=== PATIENT | female | born 1950 | race Caucasian/White ===

== ENCOUNTER 2016-10-18 14:16 | Observation (INO) ==
[2016-10-18] MEDS ORDERED: ALUM/MAG/SIMETH/LIDO VISC 1:1 30 ML BOTTLE PO STA (15:57)
[2016-10-18] MEDS ORDERED: ASPIRIN 325 MG TABLET PO STA (15:57)
--- NOTE | 2016-10-18 16:03 | Emergency Department Note ---
Xochitl Torres Gwan, am scribing for, and in the presence of, Phillip Hazel MD 16:00 . Yasemin Torres James D, MD, personally performed the services described in this documentation, ascribed by Annabel Leung in my presence, and it is both accurate and complete [id number] . Arrival - Arrival Chief Complaint: Chest Pain Stated Complaint: SOB/CP ED Nursing Triage Note: c/o chest heaviness on and off for a week. worse this am. +sob. states cant breath unless arms are above head. +cough. states cough is getting tighter. +headache Mode of Arrival: Ambulatory Limitations: No Limitations Source: Patient, Old Records Reviewed, RN Notes Reviewed Time Seen by Provider: 10/18/16 15:43 - History of Present Illness HPI Narrative: Patient is a 66 y/o white female who presents to the ED with a c/o intermittent chest heaviness and SOB that worsens with exertion with an onset of 1 week. Patient continued to state that her chest discomfort eases when she puts her arm above her head and that she has had a non-productive cough. Her associated sxs have been diaphoresis and hot flashes. She confirmed that her PCP is Dr. Marlon Woodruff, that she last was seen by Dr. medina 1 year ago and that she had a cath performed 2-3 years ago. Patient denies any abd pain or LE edema. While in ED, pt did not appear to be in any distress. Onset (ago): week(s) Consistency: intermittent Severity: moderate Allergies/Adverse Reactions: Allergies Allergy/AdvReac Type Severity Reaction Status Date / Time No Known Allergies Allergy Verified 06/26/15 08:06 Home Medications: Home Medications Medication Instructions Recorded Confirmed Type Aspirin EC Tab 81 mg PO DAILY 10/18/16 10/18/16 History Atorvastatin [Lipitor] 40 mg PO DAILY 10/18/16 10/18/16 History Benzonatate 200 mg PO Q6H PRN 10/18/16 10/18/16 History Cholecalciferol (Vitamin D3) 5,000 unit PO DAILY 10/18/16 10/18/16 History [Vitamin D3] Clorazepate [Tranxene] 3.75 mg PO BID 10/18/16 10/18/16 History Cyanocobalamin (Vitamin B-12) 2,500 mcg PO DAILY 10/18/16 10/18/16 History [Vitamin B12] Ferrous Sulfate Tab [Feosol 325 mg PO DAILY 10/18/16 10/18/16 History Original Tab] Pantoprazole Tab [Protonix Tab] 40 mg PO BID 10/18/16 10/18/16 History Selenium [Selenium Tab] 200 mcg PO BID 10/18/16 10/18/16 History Vortioxetine Hydrobromide 10 mg PO DAILY 10/18/16 10/18/16 History [Trintellix] Review of System - Review of System 12 point system: reviewed and no additional remarkable complaints except as stated - Review of System Constitutional: Present: diaphoresis. Absent: chills, fever Eyes: Absent: discharge, pain Head/Ears/Nose/Throat: Absent: earache Respiratory: Present: as per HPI, cough, other (shortness of breathe ) Cardiovascular: Present: as per HPI, chest pain Gastrointestinal: Absent: abdominal pain, nausea, vomiting Genitourinary female: Absent: dysuria Musculoskeletal: Absent: arm pain, back pain, leg pain, neck pain Skin: Absent: rash, lesions Neurological: Absent: headache, weakness Medical,Surgical,& Family Hx - Medical History Cardio: History of: Cardiac Dysrhythmia (palpitations..heart murmur..), Cardiovascular Problems (aorta has a twist in it) Psychological: History of: Anxiety Disorders Neurology: History of: Migraine No history of: Seizures Genitourinary: History of: Recurring Urinary Tract Infections Gastrointestinal: History of: GERD Musculoskeletal: History of: Back/Neck Problems (neck surgery) No history of: Amputation Reproductive: History of: Endometriosis - Surgical History HEENT Surgeries: Surgical HX of: Tonsilectomy & Adenoidectomy Abdominal Surgeries: Surgical HX of: Colonoscopy Reproductive Surgeries: Surgical HX of;: Hysterectomy Orthopedic Surgeries: Surgical HX of;: Implanted Devices (plate and screws in jaw and back area) - Family History Family History: Reports;: Family Cancer (aunts, uncles), Family Heart Disease ( father) - Social History Smoking Status: Never smoker Frequency of Alcohol Use: None Type of Drug Use: None Exam Physical Examination: GENERAL: This is a white female in no apparent distress. VITAL SIGNS: HEENT: Head is normocephalic and atraumatic. Pupils are equally round and reactive to light. Extraocular movement are intact. Oropharynx is benign with moist mucous membranes. NECK: Neck is soft and supple without tenderness. There are no masses. There is no lymphadenopathy. LUNGS: Lungs are clear to auscultation bilaterally. Chest rises symmetrically. There is no chest wall tenderness. CV: Heart is regular rate and rhythm without murmurs, rubs, or gallops. ABDOMEN: Abdomen is soft, non-tender to palpation. There are no abnormal masses palpated. There is no organomegaly. Bowel sounds are present and active. SKIN: Skin is warm and dry. No rash. EXTREMITIES: Patient has full range of motion without tenderness. There is no pedal edema. NEUROLOGIC: Awake, alert, and oriented x4. Cranial nerves II through XII are grossly intact. There are no motorsensory deficits. PSYCHIATRIC: Normal affect. Normal mood. Vital Signs: Vital Signs Temperature 96.9 F L 10/18/16 15:42 Pulse Rate 81 10/18/16 16:26 Respiratory Rate 16 10/18/16 16:26 Blood Pressure 152/88 10/18/16 16:26 O2 Sat by Pulse Oximetry 97 10/18/16 15:42 Course - Consultations Consultation #1: Discussed with Dr. Vines java application developer for Dr. Woodruff. Patient will be admitted to Dr. Woodruff. Initial orders written for him. Care will be assumed by Dr. Vines upon patient's arrival to the tong. Time: 17:21 Results - Labs CBC & BMP: 10/18/16 16:14 10/18/16 16:14 Lab Results: I have reviewed the patients labs Labs: Laboratory Tests 10/18/16 16:14 WBC 6.3 RBC 5.21 Hgb 14.9 Hct 45.0 MCV 86.4 L Plt Count 259 Baso % (Auto) 1.7 H Laboratory Tests 10/18/16 16:14 Sodium 142 Potassium 3.9 Chloride 104 Carbon Dioxide 30 BUN 11 Creatinine 0.80 Total Bilirubin 1.10 H Alkaline Phosphatase 136 H Globulin 3.8 H Albumin/Globulin Ratio 0.9 L - Diagnostic Findings Procedure: Chest x-ray: report reviewed by me (1. No acute pulmonary process is identified. 2. The patient has known aortic coarctation and there is again dilatation of the escending thoracic aorta. ) Disposition Clinical Impression: Chest pain Case discussed with: patient, patient's family Disposition: Still a Patient Condition: Stable Time of Disposition: 17:21
[2016-10-18] MEDS ORDERED: ASPIRIN 325 MG TABLET ONE (16:19)
[2016-10-18] MEDS ORDERED: ALUM/MAG/SIMETH/LIDO VISC 1:1 30 ML BOTTLE PO ONE (16:19)
--- NOTE | 2016-10-18 16:32 | XRay Report ---
Exam: Chest 2 views Date: October 18, 2016 at 4:14 PM Comparison: Chest one view July 19, 2016, CT chest May 20, 2015 Reason: Chest pain Findings: The cardiomediastinal silhouette appears stable with known aortic coarctation and dilatation of the descending thoracic aorta. No focal consolidation, pneumothorax or pleural effusion is identified. No acute osseous process is seen. Impression: 1. No acute pulmonary process is identified. 2. The patient has known aortic coarctation, and there is again dilatation of the descending thoracic aorta. PROCEDURE INTERPRETED AT [facility] DEPARTMENT OF RADIOLOGY Final Report Signed by: Dr. Ron Spencer
[2016-10-18 16:34] LABS: Basophils # 0.1 10*3/uL (0.0-0.2); Basophils % 1.7 % (0.0-0.8); Eosinophils # 0.3 10*3/uL (0.0-0.87); Eosinophils % 4.9 % (0.00-10.9); Hemoglobin 14.9 GM/DL (12.0-16.0); Immature Granulocytes % 0.5 %; Immature Granulocytes Absolute 0.03 #; Lymphocytes # 1.8 10*3/uL (1.4-4.0); Mean Corpuscular HGB Conc 33.1 GM/DL (32-36); Mean Corpuscular Hemoglobin 29 PG (27-34); Mean Corpuscular Volume 86.4 FL (87-102); Mean Platelet Volume 10.6 FL (9.6-12.0); Monocytes # 0.7 10*3/uL (0.11-0.8); Monocytes % 11.5 % (1.7-12.7); Neutrophils # 3.3 10*3/uL (1.4-7.4); Neutrophils % 52.4 % (38.7-73.9); Platelet Count 259 T/CUMM (130-400); Red Blood Count 5.21 MC/CUMM (3.8-5.5); Red Cell Distribution Width 13.9 % (9.3-17.3); White Blood Count 6.3 T/CUMM (4-12)
[2016-10-18 16:45] LABS: PT Patient Result 10.5 SECS; Partial Thromboplastin Time 26.7 SECS (0-40)
[2016-10-18 16:57] LABS: Albumin 3.7 G/DL (3.4-5.0); Bilirubin,Total 1.1 MG/DL (0.2-1.0); Calcium 9.4 MG/DL (8.5-10.1); Osmolality,Calculated 281.1 MOS/KG (273-304); Potassium 3.9 MMOL/L (3.5-5.1); Total Protein 7.5 G/DL (6.4-8.3)
[2016-10-18] MEDS ORDERED: ACETAMINOPHEN 325 MG TABLET PO PRN (18:03)
[2016-10-18] MEDS ORDERED: ONDANSETRON 4 MG/2 ML VIAL IV PRN (18:03)
[2016-10-18] MEDS ORDERED: MORPHINE 2 MG/1 ML SYRINGE IV PRN (18:03)
[2016-10-18] MEDS: SODIUM CHLORIDE 0.9% 1,000 ML IV SCH (18:47)
[2016-10-18] MEDS: ENOXAPARIN 40 MG/0.4 ML SYRINGE SUBCUT SCH (20:46)
[2016-10-18] MEDS: DOCUSATE SODIUM 100 MG CAPSULE PO SCH (20:46)
[2016-10-19] MEDS: SODIUM CHLORIDE 0.9% 1,000 ML IV SCH ×3 (02:11→18:21)
--- NOTE | 2016-10-19 05:54 | EKG Report ---
Stationary ECG Study [facility] ER Test Date: 10/18/2016 2:35:33 PM Pat Name: CED JUAREZ Department: Room: 237 Gender: F [employer]: : [id number] Requested by: Phillip Putnam Order Number: [id number] Reading MD: HI MCCRAY Intervals Meno Rate: 93 P: 81 ID: [id number] QRS: 66 QRSD: 81 T: 59 QT: 376 QTc: 427 Interpretive Statements SINUS RHYTHM POSSIBLE LEFT ATRIAL ENLARGEMENT MODERATE ST DEPRESSION Electronically Signed On 10-19-16 17:06:19 CDT by HI MCCRAY [email or web address]
[2016-10-19] MEDS ORDERED: ALBUTEROL/IPRATROPIUM 3 ML NEB RESP TX PRN (08:19)
[2016-10-19] MEDS ORDERED: PANTOPRAZOLE 40 MG TABLET PO SCH (09:00)
--- NOTE | 2016-10-19 09:13 | Family Practice History&Phys ---
Assessment and Plan (1) Chest pain Status: Acute Assessment and plan: 10/19/2016: Get cardiology consult. Initial axes are negative she is on a monitor at present Current Visit: Yes (2) Acute bronchitis with bronchospasm Status: Acute Assessment and plan: 10/19/2016: We will give Sami Herman. We will start her back on her Protonix as this does seem to initiate some of these bronchospasms. Medication for antitussives Current Visit: Yes (3) Gastroesophageal reflux disease Status: Acute Assessment and plan: 10/19/2016: We will initiate proton Current Visit: Yes (4) Depression Status: Acute Assessment and plan: 10/19/2016: She is on current trinTelex and will maintain Current Visit: Yes History of Present Illness Chief complaint: Chest fullness/discomfort, shortness of breath History of present illness: Ms. Gaona is a 66 year old female Well-known to me, came to the emergency room yesterday with intermittent chest pain which she states is been going off and on for approximately 1 week. Is a little vague on symptoms but she has had some associated diaphoresis. Admits that she went to a family reunion this weekend and "did well" during that time. Her initial set of cardiac isoenzymes were negative. The remaining lab was also normal. She had a chest x-ray which revealed no cardiopulmonary process going on except for dilatation of the descending aorta. (Known coarctation of the aorta). At this time she is coughing significantly. She does have a history of reflux which was felt to have caused her coughing in the past and I believe she is having similar symptoms at this time. We are going to restart her Protonix to see if we can quell this a little bit. Her chest pain is equivocally reproducible and it seems like it may be pleuritic. I do not appreciate any significant wheezing but she does state that it hurts when she coughs. Denies any fever chills nausea vomiting or diarrhea. She is not having any difficulty with eating. No abdominal discomfort any difficulty with bowel or bladder no leg swelling and she has no flank pain. She denies any hemoptysis. Home Medications Medication Instructions Recorded Confirmed Type Aspirin EC Tab 81 mg PO DAILY 10/18/16 10/18/16 History Atorvastatin [Lipitor] 40 mg PO DAILY 10/18/16 10/18/16 History Benzonatate 200 mg PO Q6H PRN 10/18/16 10/18/16 History Cholecalciferol (Vitamin D3) 5,000 unit PO DAILY 10/18/16 10/18/16 History [Vitamin D3] Clorazepate [Tranxene] 3.75 mg PO BID 10/18/16 10/18/16 History Cyanocobalamin (Vitamin B-12) 2,500 mcg PO DAILY 10/18/16 10/18/16 History [Vitamin B12] Ferrous Sulfate Tab [Feosol 325 mg PO DAILY 10/18/16 10/18/16 History Original Tab] Pantoprazole Tab [Protonix Tab] 40 mg PO BID 10/18/16 10/18/16 History Selenium [Selenium Tab] 200 mcg PO BID 10/18/16 10/18/16 History Vortioxetine Hydrobromide 10 mg PO DAILY 10/18/16 10/18/16 History [Trintellix] Allergies Allergy/AdvReac Type Severity Reaction Status Date / Time No Known Allergies Allergy Verified 06/26/15 08:06 12 point system: reviewed and no additional remarkable complaints except as stated (Those mentioned in the history and physical.) - Constitutional Constitutional: Present: fatigue - EENT Nose, mouth and throat: Absent: dysphagia, neck mass - Cardiovascular Cardiovascular: Present: chest pain at rest (And with coughing). Absent: claudication, orthopnea - Respiratory Respiratory: Present: cough, dyspnea. Absent: wheezing - Gastrointestinal Gastrointestinal: Absent: constipation - Genitourinary Genitourinary: Absent: difficulty urinating - Musculoskeletal Musculoskeletal: Absent: arthralgias - Neurological Neurological: Absent: behavioral changes Medical,Surgical,& Family Hx - Medical History Cardio: History of: Cardiac Dysrhythmia (palpitations..heart murmur..), Cardiovascular Problems (aorta has a twist in it) Psychological: History of: Anxiety Disorders Neurology: History of: Migraine No history of: Seizures Genitourinary: History of: Recurring Urinary Tract Infections Gastrointestinal: History of: GERD Musculoskeletal: History of: Back/Neck Problems (neck surgery) No history of: Amputation Reproductive: History of: Endometriosis - Surgical History HEENT Surgeries: Surgical HX of: Tonsilectomy & Adenoidectomy Abdominal Surgeries: Surgical HX of: Colonoscopy Reproductive Surgeries: Surgical HX of;: Hysterectomy Orthopedic Surgeries: Surgical HX of;: Implanted Devices (plate and screws in jaw and back area) - Family History Family History: Reports;: Family Cancer (aunts, uncles), Family Heart Disease ( father) - Social History Smoking Status: Never smoker Frequency of Alcohol Use: None Type of Drug Use: None Exam - Constitutional Vitals: Period Temp Pulse Resp BP Sys/Bajwa Pulse Ox Last 24 Hr 96.9 F-97.9 F 77-91 14-20 128-176/63-104 96-98 Exam: Generally well-developed female is very alert and oriented she is and is very cognitive. HEENT: There is no temporal arteritis tenderness. Patient does have a mild generalized headache. Pupils are equally reactive to light and accommodation and she has no visual cuts. Extraocular movements are intact. Neck is supple trachea is midline and she has no pharyngeal edema Cardiovascular rate is regular no gallop or rub there is 1/6 systolic ejection murmur Lungs clear bilaterally upper and lower feels. I do not appreciate any wheezing at this time but she does have a paroxysmal bronchospasms Abdomen soft nondistended nontender positive bowel sounds Extremities no clubbing cyanosis or edema Neurologically she is without any cranial nerve deficits visual cuts or any peripheral motor or sensory lateralizing signs. Results - Labs CBC & BMP: 10/18/16 16:14 10/18/16 16:14
[2016-10-19] MEDS: methylPREDNISolone SOD SUC 125 MG/2 ML VIAL IV SCH ×2 (10:11→17:10)
[2016-10-19] MEDS: CYANOCOBALAMIN 500 MCG TABLET PO SCH (10:12)
[2016-10-19] MEDS: CHOLECALCIFEROL 1,000 UNIT TABLET PO SCH (10:12)
[2016-10-19] MEDS: SELENIUM 200 MCG TABLET PO SCH ×2 (10:13→20:46)
[2016-10-19] MEDS: BUTALBITAL/ACETAMIN/CAFFEINE 50-325-40 MG TABLET PO PRN ×2 (10:13→17:10)
[2016-10-19] MEDS: DOCUSATE SODIUM 100 MG CAPSULE PO SCH ×2 (10:13→20:46)
[2016-10-19] MEDS: ATORVASTATIN 40 MG TABLET PO SCH (10:13)
[2016-10-19] MEDS: ASPIRIN EC 81 MG TABLET PO SCH (10:13)
[2016-10-19] MEDS: FERROUS SULFATE 325 MG TABLET PO SCH (10:13)
[2016-10-19] MEDS: CLORAZEPATE 3.75 MG TABLET PO SCH ×2 (10:13→20:46)
[2016-10-19] MEDS: HYDROcodone/CHLORPHENIRAMINE ER 5 ML UDCUP PO PRN (10:14)
--- NOTE | 2016-10-19 10:35 | CT Report ---
CT chest wo/w con Indication: History coarctation of aorta Comparison: CT chest dated May 20, 2015 Technique: Multiple axial tomographic images of the chest were obtained before and after the administration of 80 cc Omnipaque 350 intravenous contrast. Findings: Redemonstration of configuration of aorta consistent with coarctation with significant narrowing at the junction of the distal arch and proximal descending aorta distal to takeoff of the left subclavian artery. Narrowing appears similar to prior exam and measures approximately 1 cm. Pre and poststenotic dilatation again demonstrated. Prestenotic dilatation appears increased measuring up to 3.2 cm compared to 2.2 cm on prior examination at the level of the mid aortic arch. Poststenotic dilatation appears similar to prior examination measuring proximally 4.1 x 4.7 in largest axial dimensions at the proximal descending thoracic aorta at the level of the pulmonary artery bifurcation. No significant intrathoracic lymphadenopathy by CT size criteria. Heart size upper limits of normal. Mild dependent change of the lungs present. Senescent change and scattered small pulmonary scarring noted. No focal consolidation, pleural effusion, or pneumothorax. Visualized upper abdomen demonstrates no acute abnormality. Occasional small hypodensities are again noted within the liver which likely reflects cysts. Visualized osseous and surrounding soft tissue structures appear grossly unchanged. IMPRESSION: Redemonstration of configuration of aorta consistent with coarctation with significant narrowing at the junction of the distal arch and proximal descending aorta distal to takeoff of the left subclavian artery. Narrowing appears similar to prior exam and measures approximately 1 cm. Pre and poststenotic dilatation again demonstrated which appears similar to comparison study. The CT exam was performed using one or more of the following dose reduction techniques: Automated exposure control, adjustment of the mA and/or kV according to patient size, or use of iterative reconstruction technique. PROCEDURE INTERPRETED AT [facility] DEPARTMENT OF RADIOLOGY Final Report Signed by: Dr Ovi Mackey
--- NOTE | 2016-10-19 11:04 | Cardiology Consult Note ---
Assessment and Plan - Time spent with patient Time spent with patient: Greater than 30 minutes (1) Coughing Status: Acute Assessment and plan: See plan of care listed below Current Visit: Yes (2) Hypertension Status: Chronic Assessment and plan: See plan of care listed below Current Visit: Yes (3) Dyslipidemia Status: Chronic Assessment and plan: See plan of care listed below Current Visit: Yes (4) Coarctation of aorta Status: Chronic Assessment and plan: See plan of care listed below Current Visit: Yes (5) Chest pain Status: Acute Assessment and plan: See plan of care listed below Current Visit: Yes (6) Gastroesophageal reflux disease Status: Chronic Assessment and plan: See plan of care listed below Current Visit: Yes History of Present Illness - Data of Consult Patient: known to practice within the last 3 years Consult date: 10/19/16 Requesting Physician: Marlon Woodrfuf Primary care physician: Marlon Woodruff - Consult Narrative Reason for consult: chest pain, SOB History of present illness: 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 LAMAS Mrs. Gaona, 66WF, previously followed by Dr. Lamas for coarctation of aorta. She was last seen in cardiology clinic February 03, 2016. Risk factors include: hypertension, dyslipidemia. She has had heart catheterization several years ago revealing only mild CAD. Patient presented to the emergency department yesterday with intermittent chest pain, shortness of breath. Chest pain is described as sharp and stabbing across her chest, occurring for approximately 1 week. Chest pain is worse with coughing, and certain movements. Improves when she puts her arms above her head. She rates the discomfort as a 7 on a scale of 1-10, she is currently chest pain-free. She has been more short of breath for approximately 1 week. This is a dry and hacking cough. Walking, bending over and eating exacerbates her coughing. Cardiac biomarkers are negative, EKG is unremarkable. Patient is more concerned with her significant "fits of coughing". She had a "fit" this morning. She did not receive her PPI last evening. She remarks that her PPI, routinely taken twice daily, has previously dramatically improved her coughing. She had an EGD a few years ago performed by Dr. Ashford. She was told she has reflux and was started on a PPI twice daily. She was also told she has a small hiatal hernia. She identifies that bending forward also makes her cough is significant amount. Her father had a "massive" hiatal hernia and exhibited symptoms similar to what she is experiencing and she is gravely concerned that she may have any enlargement of her hiatal hernia. She would like to see Dr. Ashford during this admission as well. There is concerned she could be aspirating and will ask for swallow evaluation. She believes she needs a pulmonary consultation has previously seen Dr. Obando as well. She denies a history of allergies. I discussed this patient with Dr. Lamas, CT chest with and without without contrast to evaluate coarctation of aorta will be ordered this morning. Will schedule swallow evaluation, ask gastroenterology and pulmonology to see patient as well. From a cardiac standpoint, it seems that she is doing well in her chest pain is noncardiac in nature. I will further discuss with Dr. Lamas and await additional recommendations. ASSESSMENT/PLAN: 1. CHEST PAIN - improved with hands above her head. Will add Tylenol, Neurontin and Ultram to treat her musculoskeletal discomfort related to cough 2. SOB - may be an aspiration component, allergic reaction or asthma, bronchitis. 3. COUGH - chronic cough for over 1 year. She is not on an TAE inhibitor. Possible aspiration. 4. HYPERTENSION - adequately controlled 5. DYSLIPIDEMIA - fasting lipid profile 6. COARTATION OF AORTA - CT Chest to evaluate. Suspect this has nothing to do with her chest pain, SOB or cough. CC: Marlon Woodruff, DO - Home Medications and Allergies Home Medications: Home Medications Medication Instructions Recorded Confirmed Type Aspirin EC Tab 81 mg PO DAILY 10/18/16 10/18/16 History Atorvastatin [Lipitor] 40 mg PO DAILY 10/18/16 10/18/16 History Benzonatate 200 mg PO Q6H PRN 10/18/16 10/18/16 History Cholecalciferol (Vitamin D3) 5,000 unit PO DAILY 10/18/16 10/18/16 History [Vitamin D3] Clorazepate [Tranxene] 3.75 mg PO BID 10/18/16 10/18/16 History Cyanocobalamin (Vitamin B-12) 2,500 mcg PO DAILY 10/18/16 10/18/16 History [Vitamin B12] Ferrous Sulfate Tab [Feosol 325 mg PO DAILY 10/18/16 10/18/16 History Original Tab] Pantoprazole Tab [Protonix Tab] 40 mg PO BID 10/18/16 10/18/16 History Selenium [Selenium Tab] 200 mcg PO BID 10/18/16 10/18/16 History Vortioxetine Hydrobromide 10 mg PO DAILY 10/18/16 10/18/16 History [Trintellix] Allergies/Adverse Reactions: Allergies Allergy/AdvReac Type Severity Reaction Status Date / Time No Known Allergies Allergy Verified 06/26/15 08:06 Review of systems: REVIEW OF SYSTEMS: See HPI - Constitutional Constitutional: Present: Fatigue from being unable to sleep from coughing. Absent: syncope, anorexia, night sweats - EENT Eyes: Absent: blurry vision, loss of vision, diplopia Ears: Absent: decreased hearing, ear pain, ear discharge - Cardiovascular Cardiovascular: Present: chest pain with coughing and certain positions. Dyspnea at rest. Denies edema, palpitations. Absent: chest pain with deep breath, claudication - Respiratory Respiratory: Present: PENA and at rest, dry, cough. Absent: wheezing, hemoptysis , change in phlegm color - Gastrointestinal Gastrointestinal: Denies: constipation. Absent: abdominal pain, hematemesis, hematochezia, melena, change in bowel habits, nausea - Genitourinary Genitourinary: Absent: difficulty urinating, dysuria, urinary hesitancy, flank pain - Musculoskeletal Musculoskeletal: Present: back pain Absent: joint swelling, muscle cramps, muscle weakness - Neurological Neurological: Present: normal gait without frequent falls. Absent: dizziness, hemiparesis - Psychiatric Psychiatric: Absent: anxiety, depression, difficulty concentrating - Endocrine Endocrine: Absent: cold intolerance, heat intolerance, polyuria, polyphagia, polydipsia - Hematologic/Lymphatic Hematologic/Lymphatic: Present: easy bruising. Absent: easy bleeding -Integumentary Integumentary: Absent: lesions, rashes, skin breakdown Medical,Surgical,& Family Hx - Medical History Cardio: History of: Cardiac Dysrhythmia (palpitations..heart murmur..), Hypertension, Cardiovascular Problems (aorta has a twist in it) No history of: CAD Psychological: History of: Anxiety Disorders Neurology: History of: Migraine No history of: Seizures Genitourinary: History of: Recurring Urinary Tract Infections Gastrointestinal: History of: GERD Musculoskeletal: History of: Back/Neck Problems (neck surgery) No history of: Amputation Reproductive: History of: Endometriosis - Surgical History HEENT Surgeries: Surgical HX of: Tonsilectomy & Adenoidectomy Abdominal Surgeries: Surgical HX of: Colonoscopy Reproductive Surgeries: Surgical HX of;: Hysterectomy Orthopedic Surgeries: Surgical HX of;: Implanted Devices (plate and screws in jaw and back area) - Family History Family History: Reports;: Family Cancer (aunts, uncles), Family Heart Disease ( father) - Social History Smoking Status: Never smoker Frequency of Alcohol Use: None Type of Drug Use: None Marital Status: Lives With:: Spouse Functional capacity: independent ambulation Physical Examination Vital Signs Temp Pulse Resp BP Pulse Ox 96.9 F L 91 H 18 160/69 97 10/18/16 14:33 10/18/16 14:33 10/18/16 14:33 10/18/16 14:33 10/18/16 14:33 General: [Appears well with no apparent distress.] [Pleasant and cooperative. ] [Appears comfortable.] HEENT: [PERRL, normocephalic, atraumatic. Mucous membranes moist. No jaundice noted. Conjunctiva moist and clear, sclerae anicteric] Neck: No JVD/HJR, no thyromegaly or lymphadenopathy noted. No carotid bruit appreciated Cardiac: [Regular rate and rhythm.] [No obvious murmur rub or gallop.] Lungs: [Clear to auscultation without accessory muscle use to assist the respiratory pattern.] Oxygen in use via nasal cannula Abdomen: Soft, bowel sounds normoactive. Nontender and nondistended. No abdominal bruit or thrill noted. No masses noted. Musculoskeletal: No fluid collection. Decreased range of motion is noted. Extremities: No clubbing, cyanosis noted. [ No edema noted.] Upper extremity pulses 2+. Lower extremity pulses 2+. Capillary refill less than 3 seconds. Skin: No unusual lesions or rashes. No skin breakdown appreciated. Neuro: Awake, alert and oriented 3. Moves all extremities well without hemiparesis or paralysis. No essential tremor is appreciated. Result/EKG - Labs CBC & BMP: 10/18/16 16:14 10/18/16 16:14 Lab Results: I have reviewed the past 24 hour labs Labs: Laboratory Results - last 24 hr 10/18/16 10/18/16 10/18/16 16:14 16:14 16:14 WBC 6.3 RBC 5.21 Hgb 14.9 Hct 45.0 MCV 86.4 L MCH 29 MCHC 33.1 RDW 13.9 Plt Count 259 MPV 10.6 Neut % (Auto) 52.4 Lymph % (Auto) 29.0 [place] % (Auto) 11.5 Eos % (Auto) 4.9 Baso % (Auto) 1.7 H Neut # (Auto) 3.3 Lymph # (Auto) 1.8 [place] # (Auto) 0.7 Eos # (Auto) 0.3 Baso # (Auto) 0.1 Immature Gran % 0.5 Nucleated RBC % 0.0 Immature Gran # 0.03 Nucleated RBCs # 0.00 INR 1.0 PT Patient/Control Mix 10.5 Circ Anticoag PTT 26.7 Sodium 142 Potassium 3.9 Chloride 104 Carbon Dioxide 30 Anion Gap 11.9 BUN 11 Creatinine 0.80 GFR Calculation 74 BUN/Creatinine Ratio 13.00 Glucose 96 Calculated Osmolality 281.1 Calcium 9.4 Total Bilirubin 1.10 H AST 14 ALT 18 Alkaline Phosphatase 136 H Troponin I Total Protein 7.5 Albumin 3.7 Globulin 3.8 H Albumin/Globulin Ratio 0.9 L 10/18/16 10/18/16 10/18/16 16:14 19:33 21:34 WBC RBC Hgb Hct MCV MCH MCHC RDW Plt Count MPV Neut % (Auto) Lymph % (Auto) [place] % (Auto) Eos % (Auto) Baso % (Auto) Neut # (Auto) Lymph # (Auto) [place] # (Auto) Eos # (Auto) Baso # (Auto) Immature Gran % Nucleated RBC % Immature Gran # Nucleated RBCs # INR PT Patient/Control Mix Circ Anticoag PTT Sodium Potassium Chloride Carbon Dioxide Anion Gap BUN Creatinine GFR Calculation BUN/Creatinine Ratio Glucose Calculated Osmolality Calcium Total Bilirubin AST ALT Alkaline Phosphatase Troponin I 0.017 0.017 0.017 Total Protein Albumin Globulin Albumin/Globulin Ratio - Diagnostic Findings Procedure: Chest x-ray: report reviewed by me - EKG EKG results: interpreted by me EKG shows: sinus rhythm
--- NOTE | 2016-10-19 13:19 | Gastrointestinal Consult Note ---
<Yodit Fraire - Last Filed: 10/19/16 13:17> Assessment and Plan (1) Chest pain Status: Acute Assessment and plan: 10/19-recent onset of chest heaviness with new onset cough overnight with eating. Last EGD in 2016 with findings of hiatal hernia. No history of gallbladder disease in the past. Obtain gallbladder ultrasound tomorrow morning to further evaluate. Continue PPI. Plan an addendum to followed by Dr. Horta. Current Visit: Yes History of Present Illness Chief complaint: Atypical chest pain, cough with eating History of present illness: Ms. Gaona is a 66 year old female who was admitted to the hospital with complaints of atypical chest pain over the last several days as well as increasing shortness of breath. Patient states that over the last several days she has noticed that she has had increasing shortness of breath but it worsens with exertion. This is an increase from her baseline shortness of breath. She also states that she has had some chest discomfort as well that she reports is improved by raising her arms over her head. She states that the heaviness in her chest continued and she presented to the emergency room on yesterday for further evaluation. Patient states that last night after admission she did not receive her nighttime dose of Protonix. She states shortly after going to bed she began having a continuous dry cough they could not be relieved. She has a history of this cough in the past that she states was related to her reflux. Her last EGD was done in 2016 due to this cough with only findings of hiatal hernia. She also has a history of reporting that she does cough at times after she eats. She denies any abdominal pain, nausea or vomiting. Denies a history of gallbladder disease but does report a family history in her father. She denies any recent weight loss. Denies any melena or hematochezia. Denies any dysphagia. At this time she is being treated for acute bronchitis. She denies any respiratory distress since admission. Home Medications Medication Instructions Recorded Confirmed Type Aspirin EC Tab 81 mg PO DAILY 10/18/16 10/18/16 History Atorvastatin [Lipitor] 40 mg PO DAILY 10/18/16 10/18/16 History Benzonatate 200 mg PO Q6H PRN 10/18/16 10/18/16 History Cholecalciferol (Vitamin D3) 5,000 unit PO DAILY 10/18/16 10/18/16 History [Vitamin D3] Clorazepate [Tranxene] 3.75 mg PO BID 10/18/16 10/18/16 History Cyanocobalamin (Vitamin B-12) 2,500 mcg PO DAILY 10/18/16 10/18/16 History [Vitamin B12] Ferrous Sulfate Tab [Feosol 325 mg PO DAILY 10/18/16 10/18/16 History Original Tab] Pantoprazole Tab [Protonix Tab] 40 mg PO BID 10/18/16 10/18/16 History Selenium [Selenium Tab] 200 mcg PO BID 10/18/16 10/18/16 History Vortioxetine Hydrobromide 10 mg PO DAILY 10/18/16 10/18/16 History [Trintellix] Allergies Allergy/AdvReac Type Severity Reaction Status Date / Time No Known Allergies Allergy Verified 06/26/15 08:06 Medical,Surgical,& Family Hx - Medical History Cardio: History of: Cardiac Dysrhythmia (palpitations..heart murmur..), Cardiovascular Problems (aorta has a twist in it) Psychological: History of: Anxiety Disorders Neurology: History of: Migraine No history of: Seizures Genitourinary: History of: Recurring Urinary Tract Infections Gastrointestinal: History of: GERD Musculoskeletal: History of: Back/Neck Problems (neck surgery) No history of: Amputation Reproductive: History of: Endometriosis - Surgical History HEENT Surgeries: Surgical HX of: Tonsilectomy & Adenoidectomy Abdominal Surgeries: Surgical HX of: Colonoscopy Reproductive Surgeries: Surgical HX of;: Hysterectomy Orthopedic Surgeries: Surgical HX of;: Implanted Devices (plate and screws in jaw and back area) - Family History Family History: Reports;: Family Cancer (aunts, uncles), Family Heart Disease ( father) - Social History Smoking Status: Never smoker Frequency of Alcohol Use: None Type of Drug Use: None 12 point system: reviewed and no additional remarkable complaints except as stated - Constitutional Constitutional: Present: as per HPI - EENT Eyes: Present: as per HPI Ears: Present: as per HPI Nose, mouth and throat: Present: as per HPI - Cardiovascular Cardiovascular: Present: as per HPI - Respiratory Respiratory: Present: as per HPI, cough, dyspnea - Gastrointestinal Gastrointestinal: Present: as per HPI, heartburn - Genitourinary Genitourinary: Present: as per HPI - Musculoskeletal Musculoskeletal: Present: as per HPI - Neurological Neurological: Present: as per HPI - Psychiatric Psychiatric: Present: as per HPI - Endocrine Endocrine: Present: as per HPI - Hematologic/Lymphatic Hematologic/Lymphatic: Present: as per HPI Exam - Constitutional Vitals: Period Temp Pulse Resp BP Sys/Bajwa Pulse Ox Last 24 Hr 96.9 F-97.9 F 70-91 14-20 128-176/63-104 96-98 General appearance: normal weight, no acute distress - Head Head exam: Present: normal inspection, normocephalic - Eye Eye exam: Present: other (Lids and conjunctive are unremarkable). Absent: scleral icterus - ENT ENT exam: Present: normal exam, normal oropharynx - Neck Neck exam: Present: normal inspection - Respiratory Respiratory exam: Present: clear to auscultation bilaterally. Absent: rales, rhonchi, wheezes - Cardiovascular Cardiovascular exam: Present: regular rate and rhythm. Absent: diastolic murmur , JVD, systolic murmur - GI/Abdominal GI/Abdominal exam: Present: normal bowel sounds, soft. Absent: ascites, distended, mass, organomegaly, tenderness - Extremities Exam Extremities exam: Present: normal inspection, full ROM - Back Exam Back exam: Present: normal inspection - Neurological Exam Neurological exam: Present: alert, oriented X3 - Psychiatric Psychiatric exam: Present: normal affect, normal mood - Skin Skin exam: Present: normal color, warm, dry Results - Labs CBC & BMP: 10/18/16 16:14 10/18/16 16:14 Lab Results: I have reviewed the past 24 hour labs <Benito Horta - Last Filed: 10/20/16 19:40> History of Present Illness History of present illness: Ms. Gaona is a 66 year old female Exam - Constitutional Vitals: Period Temp Pulse Resp BP Sys/Bajwa Pulse Ox Last 24 Hr 97.4 F-98.4 F 73-98 16-20 138-160/73-97 94-97 Results - Labs CBC & BMP: 10/18/16 16:14 10/18/16 16:14
[2016-10-19] MEDS: ENOXAPARIN 40 MG/0.4 ML SYRINGE SUBCUT SCH (20:46)
[2016-10-19] MEDS: BENZONATATE 100 MG CAPSULE PO PRN (20:51)
[2016-10-19] MEDS: PANTOPRAZOLE 40 MG TABLET PO SCH (21:57)
[2016-10-20] MEDS: methylPREDNISolone SOD SUC 125 MG/2 ML VIAL IV SCH ×3 (00:57→16:56)
[2016-10-20] MEDS: SODIUM CHLORIDE 0.9% 1,000 ML IV SCH ×3 (02:25→18:20)
[2016-10-20] MEDS ORDERED: KETOROLAC 15 MG/1 ML VIAL IV ONE (08:09)
--- NOTE | 2016-10-20 08:18 | EKG Report ---
Stationary ECG Study [facility] Test Date: 10/20/2016 7:29:02 AM Pat Name: CED JUAREZ Department: Room: 237 Gender: F Business Information Analyst: GUNNAR : 1950 Requested by: Sylvia Lamas Order Number: [id number] Reading MD: SYLVIA LAMAS Intervals [place] Rate: 75 P: 77 MT: 167 QRS: 7 QRSD: 88 T: -5 QT: 400 QTc: 428 Interpretive Statements SINUS RHYTHM NONSPECIFIC T-WAVE ABNORMALITY INTERPRETATION BASED ON A DEFAULT AGE OF 40 YEARS Electronically Signed On 10-20-16 13:49:06 CDT by SYLVIA LAMAS [email or web address]
--- NOTE | 2016-10-20 08:53 | Family Practice Progress Note ---
Family Practice - PN: Subj Interval history: Patient seen this morning. She continues to hav intermittent coughing. She continues to complain of chest pain with movement of her arms and with deep breathing. It is felt this is noncardiac. She does have reproducible pain is noted with inhalations. I do not appreciate any wheezing or rales at this time. I am going to give her injection IV of Toradol to see if this will help in addition to her steroids that were given. Her beta natriuretic peptide was slightly high at 257. We did get a gallbladder ultrasound which is pending and she is scheduled for a swallowing study today per GI services. Hopefully we can get her home if everything is reasonably normal Exam (Progress Note) - Constitutional Vitals: Period Temp Pulse Resp BP Sys/Bajwa Pulse Ox Last 24 Hr 97.4 F-98.0 F 70-89 18-20 138-160/75-88 94-98 Exam: Generally stable no significant distress except the pain in her chest associated with deep breathing. HEENT pupils are equal reactive light neck is supple and trachea midline Lungs no rales. Do not appreciate any significant wheezing at present. She does have paroxysmal bronchospasms Abdomen soft nondistended nontender Extremities no clubbing cyanosis or edema Neurologically fully intact both and cranial nerves and peripheral nerves. Results - Labs CBC & BMP: 10/18/16 16:14 10/18/16 16:14 Assessment and Plan (1) Chest pain Status: Acute Assessment and plan: 10/19/2016: Get cardiology consult. Initial axes are negative she is on a monitor at present 10/20/2016. This is noncardiac it is felt and we are going to treat her palliatively for pleuritic chest pain Current Visit: Yes (2) Acute bronchitis with bronchospasm Status: Acute Assessment and plan: 10/19/2016: We will give Tessalon Perles. We will start her back on her Protonix as this does seem to initiate some of these bronchospasms. Medication for antitussives 10/20/2016 we will continue the antitussives that we are currently giving her. And she will continue getting her steroids and also get some ketorolac Current Visit: Yes (3) Gastroesophageal reflux disease Status: Chronic Assessment and plan: 10/19/2016: We will initiate proton Current Visit: Yes (4) Depression Status: Acute Assessment and plan: 10/19/2016: She is on current trinTelex and will maintain Current Visit: Yes
--- NOTE | 2016-10-20 09:13 | Event Note ---
Stopped by to see patient for consult. She was gone to x-ray for barium swallow. Reviewed old records on her. We worked her up in the office about a year and a half ago for chronic cough. She had a negative CT. She had normal PFTs. Normal sinus x-rays. She had a fiberoptic bronchoscopy that indicated inflammation of the larynx felt to be due to reflux. I have reviewed her CT here and it does not show anything in the lungs. My understanding is that she is getting a barium swallow this morning with plans to be discharged later. I would be happy to see her outpatient. I can come back to see her tomorrow for consult here if needed.
--- NOTE | 2016-10-20 09:55 | Ultrasound Report ---
History: Atypical chest pain with eating Date: 10/20/2016 Study: Gallbladder ultrasound Comparison exam: February 28, 2008 The gallbladder is normal in appearance without gallstones or wall thickening. There is no abnormal pericholecystic fluid. There is no abnormal biliary dilatation. The common bile duct measures 3.3 mm diameter. The liver measures 17 cm length and contains a septated cyst in the right lobe at 15 mm diameter, unchanged from the previous study. There is also small simple cyst 6 mm which is unchanged. The pancreas is normal. The right kidney measures 9.8 cm length and appears normal. Impression: Normal appearance of the gallbladder. Hepatic cysts as before PROCEDURE INTERPRETED AT [facility] DEPARTMENT OF RADIOLOGY Final Report Signed by: Dr. Whitney Ashford
--- NOTE | 2016-10-20 09:59 | Gastrointestinal Progress Note ---
<Yodit Fraire - Last Filed: 10/20/16 09:56> Assessment and Plan (1) Chest pain Status: Acute Assessment and plan: 10/20-continued coughing episodes. Barium swallow pending. Gallbladder ultrasound unremarkable. Plan an addendum to followed by Dr. Horta. 10/19-recent onset of chest heaviness with new onset cough overnight with eating. Last EGD in 2016 with findings of hiatal hernia. No history of gallbladder disease in the past. Obtain gallbladder ultrasound tomorrow morning to further evaluate. Continue PPI. Plan an addendum to followed by Dr. Horta. Current Visit: Yes Gastroenterology - PN: Subj Interval history: CC: Chest pain, cough Patient is seen awake alert sitting up in bed. Just recently returned from having a barium swallow as well as a gallbladder ultrasound. Ultrasound results show normal appearance of the gallbladder with hepatic cysts which are unchanged from previous exam. Patient states that she is not feeling well this morning and complains of a headache. She states that she has had a couple of more coughing episodes. Denies any abdominal pain. Abdomen is soft, nontender. Barium swallow results are pending. ROS: Denies shortness of breath or chest pain Exam (Progress Note) - Constitutional Vitals: Period Temp Pulse Resp BP Sys/Bajwa Pulse Ox Last 24 Hr 97.4 F-98.0 F 70-89 18-20 138-160/75-88 94-98 General appearance: normal weight, no acute distress - Head Head exam: Present: normal inspection, normocephalic - Eye Eye exam: Present: other (Lids and conjunctive are unremarkable). Absent: scleral icterus - ENT ENT exam: Present: normal exam, normal oropharynx - Neck Neck exam: Present: normal inspection - Respiratory Respiratory exam: Present: clear to auscultation bilaterally. Absent: rales, rhonchi, wheezes - Cardiovascular Cardiovascular exam: Present: regular rate and rhythm. Absent: diastolic murmur , JVD, systolic murmur - GI/Abdominal GI/Abdominal exam: Present: normal bowel sounds, soft. Absent: ascites, distended, mass, organomegaly, tenderness - Extremities Exam Extremities exam: Present: normal inspection, full ROM - Back Exam Back exam: Present: normal inspection - Neurological Exam Neurological exam: Present: alert, oriented X3 - Psychiatric Psychiatric exam: Present: normal affect, normal mood - Skin Skin exam: Present: normal color, warm, dry Results - Labs CBC & BMP: 10/18/16 16:14 10/18/16 16:14 Lab Results: I have reviewed the past 24 hour labs <Benito Horta - Last Filed: 10/20/16 19:52> Exam (Progress Note) - Constitutional Vitals: Period Temp Pulse Resp BP Sys/Bajwa Pulse Ox Last 24 Hr 97.4 F-98.4 F 73-98 16-20 138-160/73-97 94-97 Results - Labs CBC & BMP: 10/18/16 16:14 10/18/16 16:14
[2016-10-20] MEDS: HYDROcodone/CHLORPHENIRAMINE ER 5 ML UDCUP PO PRN (10:18)
[2016-10-20] MEDS: CYANOCOBALAMIN 500 MCG TABLET PO SCH (10:19)
[2016-10-20] MEDS: CHOLECALCIFEROL 1,000 UNIT TABLET PO SCH (10:19)
[2016-10-20] MEDS: FERROUS SULFATE 325 MG TABLET PO SCH (10:19)
[2016-10-20] MEDS: DOCUSATE SODIUM 100 MG CAPSULE PO SCH ×2 (10:20→21:28)
[2016-10-20] MEDS: BENZONATATE 100 MG CAPSULE PO PRN (10:20)
[2016-10-20] MEDS: SELENIUM 200 MCG TABLET PO SCH ×2 (10:20→21:29)
[2016-10-20] MEDS: PANTOPRAZOLE 40 MG TABLET PO SCH ×2 (10:20→21:28)
[2016-10-20] MEDS: CLORAZEPATE 3.75 MG TABLET PO SCH ×2 (10:20→21:28)
[2016-10-20] MEDS: ASPIRIN EC 81 MG TABLET PO SCH (10:20)
[2016-10-20] MEDS: ATORVASTATIN 40 MG TABLET PO SCH (10:21)
[2016-10-20] MEDS ORDERED: POLYETHYLENE GLYCOL POWDER 17 GM PACK PO PRN (12:49)
[2016-10-20] MEDS: PSYLLIUM POWDER 3.7 GM/PACK PO SCH (15:01)
[2016-10-20] MEDS: POLYETHYLENE GLYCOL POWDER 17 GM PACK PO SCH (15:01)
[2016-10-20] MEDS: ENOXAPARIN 40 MG/0.4 ML SYRINGE SUBCUT SCH (21:28)
--- NOTE | 2016-10-20 22:57 | Cardiology Progress Note ---
Tru Torres Vanessa, RN, am scribing for, and in the presence of, Taco Lamas MD 22:57. Assessment and Plan - Time spent with patient Time spent with patient: Greater than 30 minutes (1) Chest pain Status: Acute Assessment and plan: Still with some chest pain, thought to be GI related Still with cough after eating Still a shortness of breath with history of normal LVEF. Agree with proceeding with e scope No heart catheter or treadmill is needed at this time. Current Visit: Yes (2) Coughing Status: Acute Assessment and plan: SEE PLAN OF CARE LISTED BELOW. Current Visit: Yes (3) Coarctation of aorta Status: Chronic Assessment and plan: SEE PLAN OF CARE LISTED BELOW. Current Visit: Yes (4) Dyslipidemia Status: Chronic Assessment and plan: SEE PLAN OF CARE LISTED BELOW. Current Visit: Yes (5) Gastroesophageal reflux disease Status: Chronic Assessment and plan: SEE PLAN OF CARE LISTED BELOW. Current Visit: Yes (6) Hypertension Status: Chronic Assessment and plan: SEE PLAN OF CARE LISTED BELOW. Current Visit: Yes Cardiology - PN: Subj Interval history: PRIMARY EPOXY SPECIALIST: DR. LAMAS SUMMARY: Mrs. Gaona is a 66 year old white female with risk factors significant for: hypertension, dyslipidemia. She has been followed by Dr. Lamas in the past for coarcation of aorta, and she was last seen in [facility] in January 2016. Cardiac cath several years ago revealed only mild CAD but no obstructive disease or fixed lesions. She is now admitted to the hospital on October 18 after presenting to the [facility] ED with intermittent chest pain, shortness of breath. Cardiac biomarkers and EKG negative and unremarkable respectively. There was also concern for dysphagia and/or some aspiration as she reported she had been experiencing significant "coughing fits". Patient was also concerned that previously diagnosed small hiatal hernia had increased in size. Pulmonology and gastroenterology consulted for evaluation. Cardiology was asked to see for evaluation of chest pain. CT chest with and without contrast obtained on October 19 to evaluation coarctation of aorta. CT showed narrowing at junction of distal arch and proximal descending aorta to the takeoff of the left subclavian artery, and findings were similar to prior exam in May 2015. October: Cardiac workup, exam, and interview was suggestive that chest pain is noncardiac and possibly GI or muscolskeletal in nature. Gastroenterology has evaluated patient. Pulmonology has evaluated records, and Dr. Obando' note reviewed. Gallbladder US was unremarkable. Barium swallow is being performed this morning, and those results are pending. Cough is continued, and she reports continued chest discomfort which is worsened with arm movement and deep breathing. Chest wall pain is reproducible during exam. EKG unremarkable this morning without acute ischemic finding. Tele monitoring without disturbance. Afebrile, SBP 140-160 mmHg. BNP mildly elevated at 257 this morning. Pending findings of workup, patient is tentatively scheduled for discharge home later today. ASSESSMENT/PLAN: 1. CHEST PAIN - atypical and noncardiac in nature. Gastroenterology is evaluating for possible GI source for discomfort. Continue Tylenol, Neurontin, Ultram as chest pain may be musculoskeletal. It is reproducible during exam. 2. SHORTNESS OF BREATH - improved today. No supplemental oxygen required today. 3. COUGH - continued today. Swallowing study- patient exhibited change in vocal quality and coughing with thin liquids. Barium swallow is pending. 4. HYPERTENSION - chronic. Overall, fairly well controlled at this time. 5. DYSLIPIDEMIA - statin has been continued. 6. COARCATATION OF AORTA - chronic. CT chest with and without contrast similar and unchanged from previous CT in May 2015 and revealed significant narrowing at junction of distal arch and proximal descending aorta distal to the takeoff of left subclavian artery with an approximate 1 cm pre and poststenotic dilation. Exam (Progress Note) - Constitutional Vitals: Period Temp Pulse Resp BP Sys/Bajwa Pulse Ox Last 24 Hr 97.4 F-98.0 F 70-89 18-20 138-160/75-88 94-98 Exam: General: [Appears well with no apparent distress.] [Pleasant and cooperative. ] [Appears comfortable.] HEENT: [PERRL, normocephalic, atraumatic. Mucous membranes moist. No jaundice noted. Conjunctiva moist and clear, sclerae anicteric] Neck: No JVD/HJR, no thyromegaly or lymphadenopathy noted. No carotid bruit appreciated Cardiac: [Regular rate and rhythm.] [No obvious murmur rub or gallop.] Lungs: [Clear to auscultation without accessory muscle use to assist the respiratory pattern.] Not requiring supplemental oxygen today. Abdomen: Soft, bowel sounds normoactive. Nontender and nondistended. No abdominal bruit or thrill noted. No masses noted. Musculoskeletal: No fluid collection. Decreased range of motion is noted. Extremities: No clubbing, cyanosis noted. [ No edema noted.] Upper extremity pulses 2+. Lower extremity pulses 2+. Capillary refill less than 3 seconds. Skin: No unusual lesions or rashes. No skin breakdown appreciated. Neuro: Awake, alert and oriented 3. Moves all extremities well without hemiparesis or paralysis. No essential tremor is appreciated. Result/EKG - Labs CBC & BMP: 10/18/16 16:14 10/18/16 16:14 Lab Results: I have reviewed the past 24 hour labs Labs: Laboratory Results - last 24 hr 10/20/16 04:48 B-Natriuretic Peptide 257 H - EKG EKG results: interpreted by me, no acute changes EKG shows: sinus rhythm ICydney Dale, MD, personally performed the services described in this documentation, ascribed by Saumya Ott RN in my presence, and it is both accurate and complete .
[2016-10-21] MEDS: methylPREDNISolone SOD SUC 125 MG/2 ML VIAL IV SCH ×3 (01:13→18:15)
--- NOTE | 2016-10-21 07:15 | EKG Report ---
Stationary ECG Study [facility] Test Date: 10/21/2016 7:16:32 AM Pat Name: CED JUAREZ Department: Room: 237 Gender: F Size Cutter: GUNNAR : 1950 Requested by: Sylvia Lamas Order Number: [id number] Reading MD: SYLVIA LAMAS Intervals [place] Rate: 62 P: 79 UT: 172 QRS: 54 QRSD: 91 T: -9 QT: 429 QTc: 434 Interpretive Statements SINUS RHYTHM NONSPECIFIC T-WAVE ABNORMALITY Electronically Signed On 10-23-16 11:56:42 CDT by SYLVIA LAMAS [email or web address]
--- NOTE | 2016-10-21 08:17 | Pulmonology Consult Note ---
Assessment and Plan (1) Simple chronic bronchitis Status: Acute Assessment and plan: I do believe her bronchitis is due to reflux disease. It is being treated maximally short of surgery. Chlorpheniramine may help to quiet the cough. Current Visit: Yes (2) Gastroesophageal reflux disease Status: Chronic Assessment and plan: GI seeing her. May need another gastroscope. Defer to their judgment. She is on Protonix twice a day and the usual antireflux maneuvers. Current Visit: Yes (3) Coarctation of aorta Status: Chronic Assessment and plan: Defer to cardiology as to what part this could be playing. Apparently it is not severe enough to warrant surgery. Current Visit: Yes History of Present Illness Chief complaint: Cough and chest pain History of present illness: Ms. aGona is a 66 year old female who was admitted 3 days ago having a cough with intermittent chest pain. The pain is in the upper chest and is aggravated by her cough. Not related to exercise. Cardiology has seen her and does not feel it is cardiogenic. I have previously evaluated her about a year and a half ago for a chronic cough and she had a bronchoscopy indicating inflammation of her larynx consistent with reflux. She does have a hiatal hernia and is on medication for that. The Protonix seems to help her heartburn but she still has coughing quite frequently. She had a modified barium swallow yesterday and did well with it but then had a coughing spell right after the procedure. She last had an EGD about a year ago. She says she has a hiatal hernia but does not give any history of a stricture. She smoked for about 10 years but quit 30 years ago. She had PFTs a year and a half ago that were normal. She had a chest CT this admission that showed clear lungs. She has not had any fever and very little sputum production. We also did sinus x-rays last year and they were negative. Home Medications Medication Instructions Recorded Confirmed Type Aspirin EC Tab 81 mg PO DAILY 10/18/16 10/18/16 History Atorvastatin [Lipitor] 40 mg PO DAILY 10/18/16 10/18/16 History Benzonatate 200 mg PO Q6H PRN 10/18/16 10/18/16 History Cholecalciferol (Vitamin D3) 5,000 unit PO DAILY 10/18/16 10/18/16 History [Vitamin D3] Clorazepate [Tranxene] 3.75 mg PO BID 10/18/16 10/18/16 History Cyanocobalamin (Vitamin B-12) 2,500 mcg PO DAILY 10/18/16 10/18/16 History [Vitamin B12] Ferrous Sulfate Tab [Feosol 325 mg PO DAILY 10/18/16 10/18/16 History Original Tab] Pantoprazole Tab [Protonix Tab] 40 mg PO BID 10/18/16 10/18/16 History Selenium [Selenium Tab] 200 mcg PO BID 10/18/16 10/18/16 History Vortioxetine Hydrobromide 10 mg PO DAILY 10/18/16 10/18/16 History [Trintellix] Allergies Allergy/AdvReac Type Severity Reaction Status Date / Time No Known Allergies Allergy Verified 06/26/15 08:06 12 point system: reviewed and no additional remarkable complaints except as stated - Constitutional Constitutional: Present: fatigue - Cardiovascular Cardiovascular: Present: chest pain at rest (Especially after coughing), dyspnea on exertion - Respiratory Respiratory: Present: cough, pain on inspiration - Gastrointestinal Gastrointestinal: Present: dyspepsia, dysphagia Exam (Pulmonay) H&P - Constitutional Vitals: Period Temp Pulse Resp BP Sys/Bajwa Pulse Ox Last 24 Hr 97.2 F-98.4 F 73-81 16-20 147-157/73-86 94-97 Exam: Vital signs are normal. Room air oxygen saturation 94%. Pupils react to light. Throat is clear. Neck supple no bruits. Chest is clear I do not hear any wheezes or rales. Heart normal rate and rhythm no murmurs. There is some tenderness in the parasternal areas upper portion of her chest. Abdomen soft nontender no masses. Bowel sounds present. Extremities no clubbing cyanosis or edema. Calves nontender. Medical,Surgical,& Family Hx - Medical History Cardio: History of: Cardiac Dysrhythmia (palpitations..heart murmur..), Hypertension, Cardiovascular Problems (aorta has a twist in it) No history of: CAD Psychological: History of: Anxiety Disorders Neurology: History of: Migraine No history of: Seizures Genitourinary: History of: Recurring Urinary Tract Infections Gastrointestinal: History of: GERD Musculoskeletal: History of: Back/Neck Problems (neck surgery) No history of: Amputation Reproductive: History of: Endometriosis - Surgical History HEENT Surgeries: Surgical HX of: Tonsilectomy & Adenoidectomy Abdominal Surgeries: Surgical HX of: Colonoscopy Reproductive Surgeries: Surgical HX of;: Hysterectomy Orthopedic Surgeries: Surgical HX of;: Implanted Devices (plate and screws in jaw and back area) - Family History Family History: Reports;: Family Cancer (aunts, uncles), Family Heart Disease ( father) - Social History Smoking Status: Never smoker Frequency of Alcohol Use: None Type of Drug Use: None Results - Labs CBC & BMP: 10/18/16 16:14 10/18/16 16:14 Lab Results: I have reviewed the past 24 hour labs - Diagnostic Findings Procedure: Chest x-ray: image reviewed by me (Lungs are clear), CT - chest: image reviewed by me (Lungs are clear on CT.)
[2016-10-21] MEDS: [UNRECOGNIZED DRUG - OTHER] PO SCH (09:10)
--- NOTE | 2016-10-21 13:22 | Anesthesia Post-Op ---
Anesthesia Post OP - Post Ansesthetic Evaluation Patient seen in post op: Yes Resp: within normal limits CV: within normal limits Mental: within normal limits Temp: within normal limits Xbet-Vl-Lntsbhqns: within normal limits Nausea and Vomiting: within normal limits Pain: within normal limits
--- NOTE | 2016-10-21 13:50 | Cardiology Progress Note ---
Assessment and Plan - Time spent with patient Time spent with patient: Greater than 30 minutes (1) Coughing Status: Acute Assessment and plan: See plan of care listed below Current Visit: Yes (2) Hypertension Status: Chronic Assessment and plan: See plan of care listed below Current Visit: Yes (3) Dyslipidemia Status: Chronic Assessment and plan: See plan of care listed below Current Visit: Yes (4) Coarctation of aorta Status: Chronic Assessment and plan: See plan of care listed below Current Visit: Yes (5) Chest pain Status: Acute Assessment and plan: See plan of care listed below Current Visit: Yes (6) Gastroesophageal reflux disease Status: Chronic Assessment and plan: See plan of care listed below Current Visit: Yes Cardiology - PN: Subj Interval history: PRIMARY BRIM STITCHER: DR. LAMAS SUMMARY: Mrs. Gaona is a 66 year old white female with risk factors significant for: hypertension, dyslipidemia. She has been followed by Dr. Lamas in the past for coarcation of aorta, and she was last seen in [facility] in January 2016. Cardiac cath several years ago revealed only mild CAD but no obstructive disease or fixed lesions. She is now admitted to the hospital on October 18 [address] to the [facility] ED with intermittent chest pain, shortness of breath. Cardiac biomarkers and EKG negative and unremarkable respectively. There was also concern for dysphagia and/or some aspiration as she reported she had been experiencing significant "coughing fits". Patient was also concerned that previously diagnosed small hiatal hernia had increased in size. Pulmonology and gastroenterology consulted for evaluation. Cardiology was asked to see for evaluation of chest pain. CT chest with and without contrast obtained on October 19 to evaluation coarctation of aorta. CT showed narrowing at junction of distal arch and proximal descending aorta to the takeoff of the left subclavian artery, and findings were similar to prior exam in May 2015. October: Cardiac workup, exam, and interview was suggestive that chest pain is noncardiac and possibly GI or muscolskeletal in nature. Gastroenterology has evaluated patient. Pulmonology has evaluated records, and Dr. Obando' note reviewed. Gallbladder US was unremarkable. Barium swallow is being performed this morning, and those results are pending. Cough is continued, and she reports continued chest discomfort which is worsened with arm movement and deep breathing. Chest wall pain is reproducible during exam. EKG unremarkable this morning without acute ischemic finding. Tele monitoring without disturbance. Afebrile, SBP 140-160 mmHg. BNP mildly elevated at 257 this morning. Pending findings of workup, patient is tentatively scheduled for discharge home later today. OCTOBER 21, 2016: Scheduled for EGD this morning. Chest pain is improved. Her vital signs are stable and she slept relatively well last evening. Gallbladder ultrasound has been negative. Swallow eval revealed coughing with thin liquids. Patient may be aspirating. Barium swallow has been ordered. Hopefully, patient will be discharged home this afternoon. Blood pressure remains poorly controlled. From a cardiac standpoint, she is stable for discharge. ASSESSMENT/PLAN: 1. CHEST PAIN - atypical and noncardiac in nature. Gastroenterology is evaluating for possible GI source. Continue Tylenol, Neurontin, Ultram as chest pain may be musculoskeletal. It is reproducible during exam. 2. SHORTNESS OF BREATH -continues to improve, no complaints of this today. 3. COUGH - Swallow evaluation revealed change in vocal quality, coughing with thin liquids. She may be aspirating. Barium swallow is pending. 4. HYPERTENSION -poorly controlled at this time. Will introduce Norvasc. With her chronic cough, avoid TAE inhibitors. Heart rate will allow for introduction of a beta-fernando. 5. DYSLIPIDEMIA - statin has been continued. 6. COARCATATION OF AORTA - chronic. CT chest with and without contrast similar and unchanged from previous CT in May 2015. Exam (Progress Note) - Constitutional Vitals: Period Temp Pulse Resp BP Sys/Bajwa Pulse Ox Last 24 Hr 97.2 F-98.1 F 54-81 16-24 139-193/58-104 94-97 Exam: General: [Appears well with no apparent distress.] [Pleasant and cooperative. ] [Appears comfortable.] HEENT: [PERRL, normocephalic, atraumatic. Mucous membranes moist. No jaundice noted. Conjunctiva moist and clear, sclerae anicteric] Neck: No JVD/HJR, no thyromegaly or lymphadenopathy noted. No carotid bruit appreciated Cardiac: [Regular rate and rhythm.] [No obvious murmur rub or gallop.] Lungs: [Clear to auscultation without accessory muscle use to assist the respiratory pattern.] Oxygen in use via nasal cannula Abdomen: Soft, bowel sounds normoactive. Nontender and nondistended. No abdominal bruit or thrill noted. No masses noted. Musculoskeletal: No fluid collection. Decreased range of motion is noted. Extremities: No clubbing, cyanosis noted. [ No edema noted.] Upper extremity pulses 2+. Lower extremity pulses 2+. Capillary refill less than 3 seconds. Skin: No unusual lesions or rashes. No skin breakdown appreciated. Neuro: Awake, alert and oriented 3. Moves all extremities well without hemiparesis or paralysis. No essential tremor is appreciated. Result/EKG - Labs CBC & BMP: 10/18/16 16:14 10/18/16 16:14 Lab Results: I have reviewed the past 24 hour labs Labs: Laboratory Results - last 24 hr 10/21/16 10/21/16 05:10 05:10 B-Natriuretic Peptide 484 H Amylase 28 Lipase 78.0 - Diagnostic Findings Procedure: Ultrasound: report reviewed by me - EKG EKG results: interpreted by me EKG shows: sinus rhythm
--- NOTE | 2016-10-21 13:56 | Operative Note ---
Date of procedure: 10/21/16 Pre-op diagnosis: Atypical chest pain, dyspepsia, history of GERD Procedure: Procedure: Esophagogastroduodenoscopy Brief clinical abstract: Patient is a 66-year-old female with history of GERD. She complains of increased indigestion/dyspepsia symptoms along with increased cough recently. Indication for procedure: Increased dyspepsia, GERD Endoscopic findings:[After informed consent was obtained, the patient was placed in the left lateral decubitus position. The gastroscope was inserted in the upper esophagus under direct vision with no resistance encountered. Esophageal mucosa appeared normal with squamocolumnar junction sharply demarcated above a 2 cm hiatal hernia. No erosions or ulcerations were seen. The endoscope was advanced in the stomach which was carefully examined including retroflexed view of the cardia and fundus with no abnormalities noted. The pyloric channel, duodenal bulb, second and third portion of the duodenum appeared normal. The endoscope was withdrawn and patient appeared to tolerate the procedure well. Impression: Small hiatal hernia-otherwise normal EGD Recommendations: Continue twice daily PPI therapy for now. Anesthesia: MAC Surgeon / Physician: Luke Ashford Estimated blood loss: none Specimens: none sent Condition: stable Disposition: post procedure unit Results - Labs CBC & BMP: 10/18/16 16:14 10/18/16 16:14 Discharge Plan - Discharge Medications No Action Ferrous Sulfate Tab [Feosol Original Tab] 325 mg PO DAILY Vortioxetine Hydrobromide [Trintellix] 10 mg PO DAILY Selenium [Selenium Tab] 200 mcg PO BID Cyanocobalamin (Vitamin B-12) [Vitamin B12] 2,500 mcg PO DAILY Pantoprazole Tab [Protonix Tab] 40 mg PO BID Benzonatate 200 mg PO Q6H PRN PRN Reason: Cough Aspirin EC Tab 81 mg PO DAILY Clorazepate [Tranxene] 3.75 mg PO BID Cholecalciferol (Vitamin D3) [Vitamin D3] 5,000 unit PO DAILY Atorvastatin [Lipitor] 40 mg PO DAILY - Follow Up or Referral - Forms/Instructions
[2016-10-21] MEDS: CLORAZEPATE 3.75 MG TABLET PO SCH ×2 (14:48→21:02)
[2016-10-21] MEDS: amLODIPine 5 MG TABLET PO SCH (14:49)
[2016-10-21] MEDS: ASPIRIN EC 81 MG TABLET PO SCH (14:49)
[2016-10-21] MEDS: DOCUSATE SODIUM 100 MG CAPSULE PO SCH ×2 (14:49→20:57)
[2016-10-21] MEDS: ATORVASTATIN 40 MG TABLET PO SCH (14:49)
[2016-10-21] MEDS: HYDROcodone/CHLORPHENIRAMINE ER 5 ML UDCUP PO PRN (14:49)
[2016-10-21] MEDS: SELENIUM 200 MCG TABLET PO SCH ×2 (14:49→20:57)
[2016-10-21] MEDS: PANTOPRAZOLE 40 MG TABLET PO SCH ×2 (14:49→20:57)
[2016-10-21] MEDS: POLYETHYLENE GLYCOL POWDER 17 GM PACK PO SCH (14:50)
[2016-10-21] MEDS: PSYLLIUM POWDER 3.7 GM/PACK PO SCH (14:50)
[2016-10-21] MEDS: CYANOCOBALAMIN 500 MCG TABLET PO SCH (14:51)
[2016-10-21] MEDS: FERROUS SULFATE 325 MG TABLET PO SCH (14:51)
[2016-10-21] MEDS: CHOLECALCIFEROL 1,000 UNIT TABLET PO SCH (14:51)
[2016-10-21] MEDS: SODIUM CHLORIDE 0.9% 1,000 ML IV SCH (14:51)
--- NOTE | 2016-10-21 15:34 | Event Note ---
In discussion with patient afterwards, she has had some increased reflux symptoms with regurgitation of late on twice daily Protonix. I recommend giving a trial of adding baclofen 10 mg twice daily which has demonstrated effectiveness in improving lower esophageal sphincter relaxation especially with regurgitation symptoms. Told her that we would discontinue this if she has any side effects with the medication but would have her call my office in a couple of weeks with update on her symptoms.
[2016-10-21] MEDS: BACLOFEN 10 MG TABLET PO SCH (20:57)
[2016-10-21] MEDS: GABAPENTIN 100 MG CAPSULE PO SCH (21:01)
[2016-10-21] MEDS: NAPROXEN 250 MG TABLET PO SCH (21:01)
[2016-10-21] MEDS: ENOXAPARIN 40 MG/0.4 ML SYRINGE SUBCUT SCH (21:02)
[2016-10-21] MEDS: ACETAMINOPHEN 325 MG TABLET PO SCH (21:05)
[2016-10-22] MEDS: methylPREDNISolone SOD SUC 125 MG/2 ML VIAL IV SCH ×2 (01:56→08:42)
[2016-10-22 06:24] LABS: Basophils % 0.1 % (0.0-0.8); Hematocrit 38.6 VOL% (35.7-47.0); Hemoglobin 12.8 GM/DL (12.0-16.0); Immature Granulocytes % 0.6 %; Immature Granulocytes Absolute 0.06 #; Lymphocytes # 1.2 10*3/uL (1.4-4.0); Lymphocytes % 11.9 % (21.3-54.2); Mean Corpuscular HGB Conc 33.2 GM/DL (32-36); Mean Corpuscular Hemoglobin 28 PG (27-34); Mean Corpuscular Volume 85.6 FL (87-102); Mean Platelet Volume 11.3 FL (9.6-12.0); Monocytes # 0.4 10*3/uL (0.11-0.8); Monocytes % 3.6 % (1.7-12.7); Neutrophils # 8.4 10*3/uL (1.4-7.4); Neutrophils % 83.8 % (38.7-73.9); Platelet Count 247 T/CUMM (130-400); Red Blood Count 4.51 MC/CUMM (3.8-5.5); Red Cell Distribution Width 14.1 % (9.3-17.3)
[2016-10-22 07:11] LABS: Magnesium 2.2 MG/DL (1.8-2.4); Osmolality,Calculated 284.8 MOS/KG (273-304); Potassium 3.9 MMOL/L (3.5-5.1)
[2016-10-22] MEDS: CHOLECALCIFEROL 1,000 UNIT TABLET PO SCH (08:39)
[2016-10-22] MEDS: BACLOFEN 10 MG TABLET PO SCH ×2 (08:39→20:46)
[2016-10-22] MEDS: CLORAZEPATE 3.75 MG TABLET PO SCH ×2 (08:40→20:46)
[2016-10-22] MEDS: amLODIPine 5 MG TABLET PO SCH (08:40)
[2016-10-22] MEDS: NAPROXEN 250 MG TABLET PO SCH ×2 (08:40→20:46)
[2016-10-22] MEDS: SELENIUM 200 MCG TABLET PO SCH ×2 (08:40→20:46)
[2016-10-22] MEDS: FERROUS SULFATE 325 MG TABLET PO SCH (08:41)
[2016-10-22] MEDS: ACETAMINOPHEN 325 MG TABLET PO SCH ×2 (08:41→20:46)
[2016-10-22] MEDS: PANTOPRAZOLE 40 MG TABLET PO SCH ×2 (08:41→20:46)
[2016-10-22] MEDS: DOCUSATE SODIUM 100 MG CAPSULE PO SCH ×2 (08:41→20:46)
[2016-10-22] MEDS: GABAPENTIN 100 MG CAPSULE PO SCH ×3 (08:41→20:46)
[2016-10-22] MEDS: POLYETHYLENE GLYCOL POWDER 17 GM PACK PO SCH (08:42)
--- NOTE | 2016-10-22 08:46 | EKG Report ---
Stationary ECG Study [facility] Test Date: 10/22/2016 8:46:32 AM Pat Name: CED JUAREZ Department: Room: 237 Gender: F Folder Machine Adjuster: : 1950 Requested by: Sylvia Lamas Order Number: [id number] Reading MD: SYLVIA LAMAS Intervals [place] Rate: 77 P: 78 [place]: 146 QRS: 35 QRSD: 88 T: 27 QT: 399 QTc: 431 Interpretive Statements SINUS RHYTHM Electronically Signed On 10-23-16 11:57:25 CDT by SYLVIA LAMAS [id number]
[2016-10-22] MEDS: ASPIRIN EC 81 MG TABLET PO SCH (08:48)
[2016-10-22] MEDS: CYANOCOBALAMIN 500 MCG TABLET PO SCH (08:52)
[2016-10-22] MEDS: ATORVASTATIN 40 MG TABLET PO SCH (08:52)
--- NOTE | 2016-10-22 09:50 | Event Note ---
Patient's EGD did not show much. Baclofen was added to help with reflux symptoms. I have suggested chlorpheniramine for her cough. Still having some chest wall pain. I will sign off. Please call if needed further.
--- NOTE | 2016-10-22 09:55 | Family Practice Progress Note ---
Family Practice - PN: Subj Interval history: Patient is stable overall. Still complaining of significant chest wall pain. States the pain is increased with movement. States at times it is a little bit she does not think that she is able to tolerate it at home. Had extensive workup and it appears to be well localized to the anterior chest wall which is easily reproducible by palpation. Advised patient that her modify her present therapy have her increase activity today we will plan discharge in a.m. Exam (Progress Note) - Constitutional Vitals: Period Temp Pulse Resp BP Sys/Bajwa Pulse Ox Last 24 Hr 97.4 F-98.1 F 54-72 16-24 132-193/58-104 92-100 Results - Labs CBC & BMP: 10/22/16 05:27 10/22/16 05:27
[2016-10-22] MEDS: PSYLLIUM POWDER 3.7 GM/PACK PO SCH (10:07)
[2016-10-22] MEDS: methylPREDNISolone SOD SUC 40 MG/1 ML VIAL IV SCH ×2 (10:08→17:47)
[2016-10-22] MEDS: SODIUM CHLORIDE 0.9% 1,000 ML IV SCH ×2 (11:04→17:47)
[2016-10-22] MEDS: DICLOFENAC 1% GEL 100 GM TUBE TOP SCH ×3 (14:52→20:49)
--- NOTE | 2016-10-22 15:00 | Cardiology Progress Note ---
Assessment and Plan (1) Chest pain Status: Acute Assessment and plan: Still with some chest pain, thought to be GI related Still with cough after eating Still a shortness of breath with history of normal LVEF. Agree with proceeding with e scope No heart catheter or treadmill is needed at this time. 10/22/16 The pleuritic chest pain is not better by the gabapentin, tramadol and Tylenol Dr. Vines is trying Voltaren From my standpoint, may be discharged when you feel ready. After he is discharged she will probably have her come by for a treadmill/ Cardiolite in about 2 weeks and then see her back in the office a week or so later. Current Visit: Yes (2) Coughing Status: Acute Assessment and plan: SEE PLAN OF CARE LISTED BELOW. Current Visit: Yes (3) Coarctation of aorta Status: Chronic Assessment and plan: SEE PLAN OF CARE LISTED BELOW. Current Visit: Yes (4) Dyslipidemia Status: Chronic Assessment and plan: SEE PLAN OF CARE LISTED BELOW. Current Visit: Yes (5) Gastroesophageal reflux disease Status: Chronic Assessment and plan: SEE PLAN OF CARE LISTED BELOW. Current Visit: Yes (6) Hypertension Status: Chronic Assessment and plan: SEE PLAN OF CARE LISTED BELOW. Current Visit: Yes Cardiology - PN: Subj Interval history: No shortness of breath; still with the pleuritic chest pain. Exam (Progress Note) - Constitutional Vitals: Period Temp Pulse Resp BP Sys/Bajwa Pulse Ox Last 24 Hr 97.4 F-97.9 F 63-72 18-22 128-151/58-84 93-96 Exam: General: [Appears well with no apparent distress.] [Pleasant and cooperative. ] [Appears comfortable.] HEENT: [PERRL, normocephalic, atraumatic. Mucous membranes moist. No jaundice noted. Conjunctiva moist and clear, sclerae anicteric] Neck: No JVD/HJR, no thyromegaly or lymphadenopathy noted. No carotid bruit appreciated Cardiac: [Regular rate and rhythm.] [No obvious murmur rub or gallop.] Lungs: [Clear to auscultation without accessory muscle use to assist the respiratory pattern.] Not requiring supplemental oxygen today. Abdomen: Soft, bowel sounds normoactive. Nontender and nondistended. No abdominal bruit or thrill noted. No masses noted. Musculoskeletal: No fluid collection. Decreased range of motion is noted. Extremities: No clubbing, cyanosis noted. [ No edema noted.] Upper extremity pulses 2+. Lower extremity pulses 2+. Capillary refill less than 3 seconds. Skin: No unusual lesions or rashes. No skin breakdown appreciated. Neuro: Awake, alert and oriented 3. Moves all extremities well without hemiparesis or paralysis. No essential tremor is appreciated. Result/EKG - Labs CBC & BMP: 10/22/16 05:27 10/22/16 05:27 Lab Results: I have reviewed the past 24 hour labs Labs: Laboratory Results - last 24 hr 10/22/16 10/22/16 05:27 05:27 WBC 10.0 D RBC 4.51 Hgb 12.8 D Hct 38.6 MCV 85.6 L MCH 28 MCHC 33.2 RDW 14.1 Plt Count 247 MPV 11.3 Neut % (Auto) 83.8 H Lymph % (Auto) 11.9 L [place] % (Auto) 3.6 Eos % (Auto) 0.0 Baso % (Auto) 0.1 Neut # (Auto) 8.4 H Lymph # (Auto) 1.2 L [place] # (Auto) 0.4 Eos # (Auto) 0.0 Baso # (Auto) 0.0 Immature Gran % 0.6 Nucleated RBC % 0.0 Immature Gran # 0.06 Nucleated RBCs # 0.00 Sodium 144 Potassium 3.9 Chloride 107 Carbon Dioxide 27 Anion Gap 13.9 BUN 9 Creatinine 0.70 GFR Calculation 87 BUN/Creatinine Ratio 12.00 Glucose 102 Calculated Osmolality 284.8 Calcium 9.0 Magnesium 2.2 Specialty Discharge - Follow Up or Referrals Follow up with: Taco Lamas MD [Physician] - (The patient will call my office in a few weeks, after pleuritic chest pain is better, set up for a treadmill/Cardiolite. I will then see her back in the office in follow-up about a week or 2 after that to discuss the results. )
[2016-10-22] MEDS: ENOXAPARIN 40 MG/0.4 ML SYRINGE SUBCUT SCH (20:45)
[2016-10-23] MEDS: methylPREDNISolone SOD SUC 40 MG/1 ML VIAL IV SCH ×2 (03:45→11:19)
[2016-10-23 06:23] LABS: Calcium 8.9 MG/DL (8.5-10.1); Osmolality,Calculated 285.8 MOS/KG (273-304); Potassium 3.4 MMOL/L (3.5-5.1)
[2016-10-23] MEDS: GABAPENTIN 100 MG CAPSULE PO SCH (09:12)
[2016-10-23] MEDS: CHOLECALCIFEROL 1,000 UNIT TABLET PO SCH (09:12)
[2016-10-23] MEDS: PANTOPRAZOLE 40 MG TABLET PO SCH (09:12)
[2016-10-23] MEDS: CLORAZEPATE 3.75 MG TABLET PO SCH (09:14)
[2016-10-23] MEDS: CYANOCOBALAMIN 500 MCG TABLET PO SCH (09:14)
[2016-10-23] MEDS: ATORVASTATIN 40 MG TABLET PO SCH (09:15)
[2016-10-23] MEDS: ASPIRIN EC 81 MG TABLET PO SCH (09:15)
[2016-10-23] MEDS: DOCUSATE SODIUM 100 MG CAPSULE PO SCH (09:15)
[2016-10-23] MEDS: BACLOFEN 10 MG TABLET PO SCH (09:15)
[2016-10-23] MEDS: amLODIPine 5 MG TABLET PO SCH (09:15)
[2016-10-23] MEDS: SELENIUM 200 MCG TABLET PO SCH (09:15)
[2016-10-23] MEDS: FERROUS SULFATE 325 MG TABLET PO SCH (09:15)
[2016-10-23] MEDS: POLYETHYLENE GLYCOL POWDER 17 GM PACK PO SCH (09:16)
[2016-10-23] MEDS: PSYLLIUM POWDER 3.7 GM/PACK PO SCH (09:17)
[2016-10-23] MEDS: ACETAMINOPHEN 325 MG TABLET PO SCH (10:49)
[2016-10-23] MEDS: SODIUM CHLORIDE 0.9% 1,000 ML IV SCH (10:49)
--- NOTE | 2016-10-23 10:49 | Discharge Summary ---
Hospital Course - Hospital Course Hospital Course: History of present illness: Ms. Gaona is a 66 year old female Well-known to me, came to the emergency room yesterday with intermittent chest pain which she states is been going off and on for approximately 1 week. Is a little vague on symptoms but she has had some associated diaphoresis. Admits that she went to a family reunion this weekend and "did well" during that time. Her initial set of cardiac isoenzymes were negative. The remaining lab was also normal. In view of history patient was admitted for further evaluation and therapy HOSPITAL COURSE -patient was admitted to hospital lab and x-ray studies obtained. Cardiac isoenzymes were negative. Chest CT was unremarkable. Patient was seen in consultation by Dr. Taco lamas and no cardiac etiology was found. Patient was also seen in consultation by Dr. Ashford. An EGD was performed which revealed a small hiatal hernia otherwise unremarkable. Patient was also evaluated by Dr. Obando. It was felt that her pain was musculoskeletal chest wall pain. It is somewhat improved but still has some pain at time of discharge the pain is well localized to the costochondral margin in the mid thoracic region on the left side. Corresponding area of tenderness posterior insertion of the same ribs on the thoracic spine. Minimal palpation reproduces her complaints. I have discussed in detail with patient. Will discharge patient to home care. We will continue present medications. Advised patient that she may need a nerve block if symptoms persist. She is to contact Dr. Woodruff's office in a.m. to arrange follow-up appointment. Will have her call or return to the emergency room if condition worsens or new problems develop Diagnosis - Discharge Diagnosis (1) Chest pain Status: Acute (2) Coarctation of aorta Status: Chronic (3) Gastroesophageal reflux disease Status: Chronic Specialty Discharge - Follow Up or Referrals Follow up with: Taco Lamas MD [Physician] - (The patient will call my office in a few weeks, after pleuritic chest pain is better, set up for a treadmill/Cardiolite. I will then see her back in the office in follow-up about a week or 2 after that to discuss the results. ) Discharge Plan - Discharge Data Disposition: Disch To Home/Self Care Condition at Discharge: Stable Discharge Diet: advance to your usual diet Activity: resume usual activities as tolerated Hygiene: no restrictions Weight Bearing at Discharge: full weight bearing Contact your physician if you experience:: fever over 101, Shortness of breath - Discharge Medications New amLODIPine [Norvasc] 5 mg PO DAILY #30 tablet HYDROcodone/ACETAMIN 10-325 [[place] 10-325] 1 tablet PO Q6H PRN #30 tablet PRN Reason: Pain Moderate (4-7) Diclofenac 1% Gel [Voltaren 1% Gel] 1 applic TOP QID #1 applic Continue Ferrous Sulfate Tab [Feosol Original Tab] 325 mg PO DAILY Vortioxetine Hydrobromide [Trintellix] 10 mg PO DAILY Selenium [Selenium Tab] 200 mcg PO BID Cyanocobalamin (Vitamin B-12) [Vitamin B12] 2,500 mcg PO DAILY Pantoprazole Tab [Protonix Tab] 40 mg PO BID Benzonatate 200 mg PO Q6H PRN PRN Reason: Cough Aspirin EC Tab 81 mg PO DAILY Clorazepate [Tranxene] 3.75 mg PO BID Cholecalciferol (Vitamin D3) [Vitamin D3] 5,000 unit PO DAILY Atorvastatin [Lipitor] 40 mg PO DAILY - Follow Up or Referral Follow Up: Taco Lamas MD [Physician] - (The patient will call my office in a few weeks, after pleuritic chest pain is better, set up for a treadmill/Cardiolite. I will then see her back in the office in follow-up about a week or 2 after that to discuss the results. ) Marlon Woodruff DO [Physician] - (Patient is to call Dr. Woodruff in a.m. to set up follow-up) - Forms/Instructions Exam - Constitutional Vitals: Period Temp Pulse Resp BP Sys/Bajwa Pulse Ox Last 24 Hr 97.4 F-97.8 F 70-86 18-20 128-158/58-90 93-97 General appearance: no acute distress - Head Head exam: Present: normal inspection - Eye Pupils: Present: HORTENCIA - ENT ENT exam: Present: normal exam - Neck Neck exam: Present: normal inspection - Respiratory Respiratory exam: Present: clear to auscultation bilaterally, other (Patient has localized tenderness costochondral junction mid thoracic region) - Cardiovascular Cardiovascular exam: Present: regular rate and rhythm - GI/Abdominal GI/Abdominal exam: Present: normal bowel sounds, soft - Extremities Exam Extremities exam: Present: normal inspection - Back Exam Back exam: Present: normal inspection - Neurological Exam Neurological exam: Present: alert, oriented X3 - Psychiatric Psychiatric exam: Present: normal affect - Skin Skin exam: Present: normal color Discharge Results Labs on day of discharge: Labs from last 24 hours 10/23/16 05:25 Sodium 144 Potassium 3.4 L Chloride 107 Carbon Dioxide 28 Anion Gap 12.4 BUN 14 Creatinine 0.60 GFR Calculation 92 BUN/Creatinine Ratio 23.00 H Glucose 77 Calculated Osmolality 285.8 Calcium 8.9 DS: Provider Date of admission: 10/18/16 17:22 Primary care physician: . No PCP Attending physician on admission: Marlon Woodruff DO Consults: 10/18/16 18:03 Consult to Case Mgmt/Social Srvs [CONS] Routine Reason for Case Mgmt/Social Srvs: Discharge Planning Consult to Physician [CONS] Routine Comment: chest pain, pt known to you Consulting Provider: Cardiology - [facility] 10/19/16 11:04 Consult to Physician [CONS] Routine Comment: SOB, cough - chronic Consulting Provider: Julian Obando Person Notified: LEE Date Notified: 10/19/16 Time Notified: 11:28 10/19/16 11:05 Consult to Physician [CONS] Routine Comment: Severe coughing after eating, bending over. Consulting Provider: Luke Ashford Discharging clinician: Adam Vines DO
[2016-10-23] MEDS: DICLOFENAC 1% GEL 100 GM TUBE TOP SCH (10:50)
--- NOTE | 2016-10-23 10:51 | Pulmonology Progress Note ---
Pulmonary - PN: Subj Interval history: This 66-year-old white female being managed for cough due to recurrent reflux. She is feeling better today. She is a little sleepy from the medications. Dr. Vines is going to let her go home. Exam (Progress Note) - Constitutional Vitals: Period Temp Pulse Resp BP Sys/Bajwa Pulse Ox Last 24 Hr 97.4 F-97.8 F 70-86 18-20 128-158/58-90 93-97 Exam: Patient is arousable vital signs normal. Pupils react light. Throat is clear. Neck supple no bruits. Chest reveals clear lungs. Heart normal rate and rhythm no murmurs. Abdomen soft nontender no masses. Extremities no clubbing cyanosis or edema. Calves nontender Results - Labs CBC & BMP: 10/22/16 05:27 10/23/16 05:25 Lab Results: I have reviewed the past 24 hour labs Assessment and Plan (1) Simple chronic bronchitis Status: Acute Assessment and plan: I do believe her bronchitis is due to reflux disease. It is being treated maximally short of surgery. Chlorpheniramine may help to quiet the cough. 10/23/2016 chlorpheniramine seems to be helping her cough. The drowsiness may get better in a few days. Current Visit: Yes (2) Gastroesophageal reflux disease Status: Chronic Assessment and plan: GI seeing her. May need another gastroscope. Defer to their judgment. She is on Protonix twice a day and the usual antireflux maneuvers. Current Visit: Yes (3) Coarctation of aorta Status: Chronic Assessment and plan: Defer to cardiology as to what part this could be playing. Apparently it is not severe enough to warrant surgery. Current Visit: Yes Specialty Discharge - Follow Up or Referrals Follow up with: Taco Lamas MD [Physician] - (The patient will call my office in a few weeks, after pleuritic chest pain is better, set up for a treadmill/Cardiolite. I will then see her back in the office in follow-up about a week or 2 after that to discuss the results. )
[2016-10-23 11:18] VITALS: BP 143/79
--- NOTE | 2016-10-23 16:54 | Cardiology Progress Note ---
Assessment and Plan (1) Chest pain Status: Acute Assessment and plan: Still with some chest pain, thought to be GI related Still with cough after eating Still a shortness of breath with history of normal LVEF. Agree with proceeding with e scope No heart catheter or treadmill is needed at this time. 10/22/16 The pleuritic chest pain is not better by the gabapentin, tramadol and Tylenol Dr. Vines is trying Voltaren From my standpoint, may be discharged when you feel ready. After he is discharged she will probably have her come by for a treadmill/ Cardiolite in about 2 weeks and then see her back in the office a week or so later. 10/23/16 Chest pain seems pleuritic. It was better with Dr. Vines's treatment, Voltaren cream Now some back pain. Maybe his muscle skeletal From my standpoint okay with discharge when you say so We will check to see if she got some potassium for low potassium. If not, will replete She will call us in a few weeks when her pain is better which is noncardiac we can do a stress test I will see her about a week after that time Thank you for allowing me to participate in this patient's care (2) Coughing Status: Acute Assessment and plan: SEE PLAN OF CARE LISTED BELOW. (3) Coarctation of aorta Status: Chronic Assessment and plan: SEE PLAN OF CARE LISTED BELOW. (4) Dyslipidemia Status: Chronic Assessment and plan: SEE PLAN OF CARE LISTED BELOW. (5) Gastroesophageal reflux disease Status: Chronic Assessment and plan: SEE PLAN OF CARE LISTED BELOW. (6) Hypertension Status: Chronic Assessment and plan: SEE PLAN OF CARE LISTED BELOW. Cardiology - PN: Subj Interval history: Less chest pain with Dr. Vines his treatment Had some back pain this morning which is better with the p.o. I saw the patient at 10:05 AM Exam (Progress Note) - Constitutional Vitals: Period Temp Pulse Resp BP Sys/Bajwa Pulse Ox Last 24 Hr 97.4 F-97.8 F 69-74 18-20 143-152/70-84 93-97 Exam: General: [Appears well with no apparent distress.] [Pleasant and cooperative. ] [Appears comfortable.] HEENT: [PERRL, normocephalic, atraumatic. Mucous membranes moist. No jaundice noted. Conjunctiva moist and clear, sclerae anicteric] Neck: No JVD/HJR, no thyromegaly or lymphadenopathy noted. No carotid bruit appreciated Cardiac: [Regular rate and rhythm.] [No obvious murmur rub or gallop.] Lungs: [Clear to auscultation without accessory muscle use to assist the respiratory pattern.] Not requiring supplemental oxygen today. Abdomen: Soft, bowel sounds normoactive. Nontender and nondistended. No abdominal bruit or thrill noted. No masses noted. Musculoskeletal: No fluid collection. Decreased range of motion is noted. Extremities: No clubbing, cyanosis noted. [ No edema noted.] Upper extremity pulses 2+. Lower extremity pulses 2+. Capillary refill less than 3 seconds. Skin: No unusual lesions or rashes. No skin breakdown appreciated. Neuro: Awake, alert and oriented 3. Moves all extremities well without hemiparesis or paralysis. No essential tremor is appreciated. Result/EKG - Labs CBC & BMP: 10/22/16 05:27 10/23/16 05:25 Lab Results: I have reviewed the past 24 hour labs Labs: Laboratory Results - last 24 hr 10/23/16 05:25 Sodium 144 Potassium 3.4 L Chloride 107 Carbon Dioxide 28 Anion Gap 12.4 BUN 14 Creatinine 0.60 GFR Calculation 92 BUN/Creatinine Ratio 23.00 H Glucose 77 Calculated Osmolality 285.8 Calcium 8.9 Specialty Discharge - Follow Up or Referrals Follow up with: Taco Lamas MD [Physician] - (The patient will call my office in a few weeks, after pleuritic chest pain is better, set up for a treadmill/Cardiolite. I will then see her back in the office in follow-up about a week or 2 after that to discuss the results. ) Marlon Woodruff DO [Physician] - (Patient is to call Dr. Woodruff in a.m. to set up follow-up)
== END 2016-10-23 12:40 | disposition home or self-care (01) ==
LOC: N.ED 14:16 → N.EDINP 14:16 → N.2E 17:36
PROVIDERS: ADMIT Family Medicine; ATTEND Family Medicine

== ENCOUNTER 2020-08-10 14:42 | Inpatient (IN) ==
[2020-08-10] MEDS ORDERED: ONDANSETRON 4 MG/2 ML VIAL IV PRN (14:49)
[2020-08-10] MEDS ORDERED: ACETAMINOPHEN 325 MG TABLET PO PRN (14:49)
[2020-08-10 16:41] LABS: Basophils # 0.1 10*3/uL (0.0-0.2); Basophils % 1.7 % (0.0-0.8); Eosinophils # 0.1 10*3/uL (0.0-0.87); Eosinophils % 1.7 % (0.00-10.9); Hematocrit 42.2 VOL% (35.7-47.0); Hemoglobin 13.6 GM/DL (12.0-16.0); Immature Granulocytes % 0.6 %; Immature Granulocytes Absolute 0.03 #; Lymphocytes # 1.9 10*3/uL (1.4-4.0); Lymphocytes % 36.1 % (21.3-54.2); Mean Corpuscular HGB Conc 32.2 GM/DL (32-36); Mean Corpuscular Volume 89.6 FL (87-102); Mean Platelet Volume 10.2 FL (9.6-12.0); Monocytes % 9.5 % (1.7-12.7); Neutrophils % 50.4 % (38.7-73.9); Platelet Count 263 T/CUMM (130-400); Red Blood Count 4.71 MC/CUMM (3.8-5.5); Red Cell Distribution Width 12.5 % (9.3-17.3); White Blood Count 5.4 T/CUMM (4-12)
[2020-08-10 17:03] LABS: Bilirubin,Total 1.4 MG/DL (0.2-1.0); Calcium 9.5 MG/DL (8.5-10.1); Osmolality,Calculated 277.4 MOS/KG (273-304); Potassium 4.9 MMOL/L (3.5-5.1); Total Protein 7.9 G/DL (6.4-8.2); Troponin I < 0.015 NG/ML (0.00-0.045)
[2020-08-10] MEDS: SODIUM CHLORIDE 0.9% 1,000 ML IV SCH (19:13)
[2020-08-10] MEDS: PANTOPRAZOLE 40 MG VIAL IV SCH (19:13)
[2020-08-10] MEDS: ENOXAPARIN 40 MG/0.4 ML SYRINGE SUBCUT SCH (19:13)
[2020-08-10] MEDS: DOCUSATE SODIUM 100 MG CAPSULE PO SCH (21:05)
[2020-08-10 21:15] LABS: Troponin I < 0.015 NG/ML (0.00-0.045)
[2020-08-11 03:36] LABS: Troponin I < 0.015 NG/ML (0.00-0.045)
[2020-08-11] MEDS ORDERED: ALUM/MAG/SIMETH/LIDO VISC 1:1 30 ML BOTTLE PO ONE (08:58)
[2020-08-11] MEDS ORDERED: KETOROLAC 30 MG/1 ML VIAL IV ONE (08:58)
[2020-08-11] MEDS: DOCUSATE SODIUM 100 MG CAPSULE PO SCH ×2 (09:17→22:04)
[2020-08-11] MEDS: PANTOPRAZOLE 40 MG VIAL IV SCH (09:18)
[2020-08-11] MEDS: SODIUM CHLORIDE 0.9% 1,000 ML IV SCH (15:29)
[2020-08-11] MEDS: GABAPENTIN 50 MG/ML 30 ML/BOTTLE PO SCH ×2 (17:14→22:05)
[2020-08-11] MEDS: ENOXAPARIN 40 MG/0.4 ML SYRINGE SUBCUT SCH (17:16)
[2020-08-11] MEDS: FLUoxetine 20 MG CAPSULE PO SCH (22:04)
[2020-08-11] MEDS: ACETAMINOPHEN 325 MG TABLET PO SCH (22:05)
[2020-08-12] MEDS: SODIUM CHLORIDE 0.9% 1,000 ML IV SCH (11:49)
[2020-08-12] MEDS: LACTATED RINGERS 1,000 ML IV SCH (11:49)
[2020-08-12] MEDS: GABAPENTIN 50 MG/ML 30 ML/BOTTLE PO SCH ×3 (11:50→22:36)
[2020-08-12] MEDS: DOCUSATE SODIUM 100 MG CAPSULE PO SCH ×2 (11:50→22:36)
[2020-08-12] MEDS: ACETAMINOPHEN 325 MG TABLET PO SCH ×2 (11:50→22:33)
[2020-08-12] MEDS ORDERED: propofoL 200 MG/20 ML VIAL IV ONE (14:56)
[2020-08-12] MEDS ORDERED: LIDOCAINE 2% 5 ML VIAL ONE (14:56)
[2020-08-12] MEDS: PANTOPRAZOLE 40 MG VIAL IV SCH ×2 (15:15→22:54)
[2020-08-12] MEDS: ASPIRIN EC 81 MG TABLET PO SCH (15:15)
[2020-08-12] MEDS: ALUM/MAG/SIMETH/LIDO VISC 1:1 30 ML BOTTLE PO PRN (16:14)
[2020-08-12] MEDS: ENOXAPARIN 40 MG/0.4 ML SYRINGE SUBCUT SCH (16:14)
[2020-08-12] MEDS: FLUoxetine 20 MG CAPSULE PO SCH (22:33)
[2020-08-13] MEDS: SODIUM CHLORIDE 0.9% 1,000 ML IV SCH ×2 (02:56→23:57)
[2020-08-13 06:08] LABS: Basophils # 0.1 10*3/uL (0.0-0.2); Basophils % 1.3 % (0.0-0.8); Eosinophils # 0.1 10*3/uL (0.0-0.87); Hematocrit 38.3 VOL% (35.7-47.0); Hemoglobin 12.8 GM/DL (12.0-16.0); Immature Granulocytes % 0.3 %; Immature Granulocytes Absolute 0.01 #; Lymphocytes # 1.3 10*3/uL (1.4-4.0); Lymphocytes % 33.8 % (21.3-54.2); Mean Corpuscular HGB Conc 33.4 GM/DL (32-36); Mean Corpuscular Volume 87.6 FL (87-102); Mean Platelet Volume 10.2 FL (9.6-12.0); Monocytes % 10.2 % (1.7-12.7); Neutrophils % 51.4 % (38.7-73.9); Platelet Count 223 T/CUMM (130-400); Red Blood Count 4.37 MC/CUMM (3.8-5.5); Red Cell Distribution Width 12.5 % (9.3-17.3); White Blood Count 3.9 T/CUMM (4-12)
[2020-08-13 06:45] LABS: Calcium 8.7 MG/DL (8.5-10.1); Osmolality,Calculated 271.7 MOS/KG (273-304); Potassium 4.6 MMOL/L (3.5-5.1)
[2020-08-13] MEDS: PANTOPRAZOLE 40 MG VIAL IV SCH (08:24)
[2020-08-13] MEDS: ASPIRIN EC 81 MG TABLET PO SCH (09:08)
[2020-08-13] MEDS: GABAPENTIN 50 MG/ML 30 ML/BOTTLE PO SCH ×3 (09:08→20:36)
[2020-08-13] MEDS: DOCUSATE SODIUM 100 MG CAPSULE PO SCH ×2 (09:08→20:36)
[2020-08-13] MEDS: LACTATED RINGERS 1,000 ML IV SCH (09:08)
[2020-08-13] MEDS: ACETAMINOPHEN 325 MG TABLET PO SCH ×2 (09:08→22:22)
[2020-08-13] MEDS ORDERED: cefOXitin 2,000 MG in SYRINGE 1 EACH IV ONE (12:23)
[2020-08-13] MEDS: COLESTIPOL 1 GM TABLET PO SCH (12:35)
[2020-08-13] MEDS: FLUoxetine 20 MG CAPSULE PO SCH (20:34)
[2020-08-14] MEDS ORDERED: cefOXitin 2,000 MG in SYRINGE 1 EACH IV ONE ×2 (06:00→06:30)
[2020-08-14] MEDS ORDERED: LIDOCAINE 1%/EPI INJ 20 ML VIAL ONE (06:25)
[2020-08-14] MEDS ORDERED: TISSUE ADHESIVE 1 EACH APPLICATOR TOP ONE (06:25)
[2020-08-14] MEDS ORDERED: BUPIVACAINE MPF 0.25% 30 ML VIAL ONE (06:25)
[2020-08-14] MEDS ORDERED: MIDAZOLAM 2 MG/2 ML VIAL ONE (06:43)
[2020-08-14] MEDS ORDERED: fentaNYL 100 MCG/2 ML VIAL ONE (06:43)
[2020-08-14] MEDS ORDERED: ePHEDrine 50 MG/ML VIAL ONE (07:20)
[2020-08-14] MEDS ORDERED: ROCURONIUM 50 MG/5 ML VIAL IV ONE (07:31)
[2020-08-14] MEDS ORDERED: propofoL 200 MG/20 ML VIAL IV ONE (07:31)
[2020-08-14] MEDS ORDERED: LIDOCAINE 2% 5 ML VIAL ONE (07:31)
[2020-08-14] MEDS ORDERED: GLYCOPYRROLATE 0.4 MG/2 ML VIAL ONE (07:31)
[2020-08-14] MEDS ORDERED: SUCCINYLCHOLINE 200 MG/10 ML VIAL ONE (07:31)
[2020-08-14] MEDS ORDERED: METOPROLOL TARTRATE 5 MG/5 ML VIAL IV ONE (07:52)
[2020-08-14] MEDS ORDERED: SEVOFLURANE 1 UNIT/15 MINUTE INH ONE ×3 (07:52→08:31)
[2020-08-14] MEDS ORDERED: SUGAMMADEX 200 MG/2 ML VIAL IV ONE (07:55)
[2020-08-14] MEDS ORDERED: HYDROmorphone 2 MG/1 ML VIAL ONE (08:17)
[2020-08-14] MEDS: HYDROmorphone 2 MG/1 ML VIAL IV PRN ×2 (08:25→08:32)
[2020-08-14 08:26] LABS: Bilirubin,Urine Negative (Negative); Blood, Urine Small mg/dL (Negative); Glucose,Urine (UA) Negative (Negative); Ketones,Urine 20 mg/dL (Negative); Mucus,Urine Occasional /LPF (Occasional); Nitrite,Urine Negative (Negative); Protein,Urine Negative; RBC,Urine 2 /HPF (0-4); Urine Appearance CLEAR (Clear); Urine Color Straw (Yellow); Urine Specific Gravity 1.013 (1.001-1.035); Urine Urobilinogen < 2.0 EU/DL (0.2-1.0); WBC,Urine <1 /HPF (0-6)
[2020-08-14] MEDS ORDERED: PHENYLEPHRINE DRIP 20 MG/250 ML PREMIX IV ONE (08:33)
[2020-08-14] MEDS ORDERED: ONDANSETRON 4 MG/2 ML VIAL IV PRN (08:41)
[2020-08-14 08:52] LABS: Basophils % 0.3 % (0.0-0.8); Eosinophils # 0.1 10*3/uL (0.0-0.87); Eosinophils % 0.9 % (0.00-10.9); Hematocrit 38.7 VOL% (35.7-47.0); Hemoglobin 12.3 GM/DL (12.0-16.0); Immature Granulocytes % 0.5 %; Immature Granulocytes Absolute 0.05 #; Lymphocytes # 1.5 10*3/uL (1.4-4.0); Lymphocytes % 15.6 % (21.3-54.2); Mean Corpuscular HGB Conc 31.8 GM/DL (32-36); Mean Corpuscular Volume 91.1 FL (87-102); Mean Platelet Volume 9.9 FL (9.6-12.0); Monocytes % 4.9 % (1.7-12.7); Neutrophils % 77.8 % (38.7-73.9); Platelet Count 203 T/CUMM (130-400); Red Blood Count 4.25 MC/CUMM (3.8-5.5); Red Cell Distribution Width 12.4 % (9.3-17.3); White Blood Count 9.7 T/CUMM (4-12)
[2020-08-14] MEDS: SODIUM CHLORIDE 0.9% 1,000 ML IV SCH ×2 (09:03→20:36)
[2020-08-14 09:18] LABS: Calcium 7.6 MG/DL (8.5-10.1); Osmolality,Calculated 277.4 MOS/KG (273-304); Potassium 4.1 MMOL/L (3.5-5.1)
[2020-08-14] MEDS: DOCUSATE SODIUM 100 MG CAPSULE PO SCH ×2 (10:24→20:29)
[2020-08-14] MEDS: ACETAMINOPHEN 325 MG TABLET PO SCH ×2 (10:24→20:30)
[2020-08-14] MEDS: COLESTIPOL 1 GM TABLET PO SCH (10:24)
[2020-08-14] MEDS: ASPIRIN EC 81 MG TABLET PO SCH (10:24)
[2020-08-14] MEDS: GABAPENTIN 50 MG/ML 30 ML/BOTTLE PO SCH ×3 (10:27→20:29)
[2020-08-14] MEDS: PANTOPRAZOLE 40 MG VIAL IV SCH (10:32)
[2020-08-14] MEDS: LACTATED RINGERS 1,000 ML IV SCH (10:37)
[2020-08-14] MEDS ORDERED: SODIUM CHLORIDE 0.9% 500 ML IV ONE (11:46)
[2020-08-14] MEDS: FAMOTIDINE 20 MG TABLET PO SCH (12:15)
[2020-08-14] MEDS ORDERED: CYCLOBENZAPRINE 10 MG TABLET PO PRN (13:00)
[2020-08-14 14:23] LABS: Hematocrit 37.6 VOL% (35.7-47.0); Hemoglobin 12.2 GM/DL (12.0-16.0)
[2020-08-14 20:03] LABS: Hematocrit 34.3 VOL% (35.7-47.0); Hemoglobin 11.2 GM/DL (12.0-16.0)
[2020-08-14] MEDS: FLUoxetine 20 MG CAPSULE PO SCH (20:29)
[2020-08-15 02:11] LABS: Hemoglobin 10.7 GM/DL (12.0-16.0)
[2020-08-15] MEDS: HYDROmorphone 2 MG/1 ML VIAL IV PRN ×4 (05:03→19:32)
[2020-08-15 06:14] LABS: Basophils % 0.5 % (0.0-0.8); Eosinophils # 0.1 10*3/uL (0.0-0.87); Eosinophils % 1.5 % (0.00-10.9); Hematocrit 33.4 VOL% (35.7-47.0); Hemoglobin 11.3 GM/DL (12.0-16.0); Immature Granulocytes % 0.4 %; Immature Granulocytes Absolute 0.03 #; Lymphocytes # 1.4 10*3/uL (1.4-4.0); Lymphocytes % 18.5 % (21.3-54.2); Mean Corpuscular HGB Conc 33.8 GM/DL (32-36); Mean Corpuscular Volume 90.3 FL (87-102); Mean Platelet Volume 11.1 FL (9.6-12.0); Monocytes % 10.2 % (1.7-12.7); Neutrophils % 68.9 % (38.7-73.9); Platelet Count 206 T/CUMM (130-400); Red Cell Distribution Width 12.3 % (9.3-17.3); White Blood Count 7.4 T/CUMM (4-12)
[2020-08-15 06:35] LABS: Calcium 7.9 MG/DL (8.5-10.1); Osmolality,Calculated 272.5 MOS/KG (273-304); Potassium 3.6 MMOL/L (3.5-5.1)
[2020-08-15 07:44] LABS: Troponin I 0.126 NG/ML (0.00-0.045)
[2020-08-15] MEDS: DOCUSATE SODIUM 100 MG CAPSULE PO SCH ×2 (09:31→21:58)
[2020-08-15] MEDS: COLESTIPOL 1 GM TABLET PO SCH (09:31)
[2020-08-15] MEDS: ASPIRIN EC 81 MG TABLET PO SCH (09:31)
[2020-08-15] MEDS: ACETAMINOPHEN 325 MG TABLET PO SCH ×2 (09:31→21:58)
[2020-08-15] MEDS: FAMOTIDINE 20 MG TABLET PO SCH (09:32)
[2020-08-15] MEDS: PANTOPRAZOLE 40 MG VIAL IV SCH (09:32)
[2020-08-15] MEDS: GABAPENTIN 50 MG/ML 30 ML/BOTTLE PO SCH ×3 (09:32→21:58)
[2020-08-15] MEDS: SODIUM CHLORIDE 0.9% 1,000 ML IV SCH (15:12)
[2020-08-15] MEDS: FLUoxetine 20 MG CAPSULE PO SCH (21:57)
[2020-08-16] MEDS: HYDROmorphone 2 MG/1 ML VIAL IV PRN ×3 (08:11→20:12)
[2020-08-16] MEDS: ASPIRIN EC 81 MG TABLET PO SCH (08:12)
[2020-08-16] MEDS: COLESTIPOL 1 GM TABLET PO SCH (08:12)
[2020-08-16] MEDS: ACETAMINOPHEN 325 MG TABLET PO SCH ×2 (08:12→20:10)
[2020-08-16] MEDS: DOCUSATE SODIUM 100 MG CAPSULE PO SCH ×2 (08:12→20:10)
[2020-08-16] MEDS: PANTOPRAZOLE 40 MG VIAL IV SCH (08:12)
[2020-08-16] MEDS: FAMOTIDINE 20 MG TABLET PO SCH (08:12)
[2020-08-16] MEDS: GABAPENTIN 50 MG/ML 30 ML/BOTTLE PO SCH ×4 (08:13→20:12)
[2020-08-16] MEDS ORDERED: CYCLOBENZAPRINE 10 MG TABLET PO PRN (09:04)
[2020-08-16] MEDS ORDERED: SIMETHICONE CHEW 125 MG TABLET PO SCH (09:30)
[2020-08-16] MEDS: SODIUM CHLORIDE 0.9% 1,000 ML IV SCH (12:36)
[2020-08-16] MEDS: SIMETHICONE CHEW 125 MG TABLET PO SCH ×3 (12:36→20:11)
[2020-08-16] MEDS: FLUoxetine 20 MG CAPSULE PO SCH (20:11)
[2020-08-17] MEDS: HYDROmorphone 2 MG/1 ML VIAL IV PRN ×3 (02:20→10:49)
[2020-08-17 05:09] LABS: Basophils # 0.1 10*3/uL (0.0-0.2); Eosinophils # 0.3 10*3/uL (0.0-0.87); Eosinophils % 3.6 % (0.00-10.9); Hematocrit 32.2 VOL% (35.7-47.0); Immature Granulocytes % 0.4 %; Immature Granulocytes Absolute 0.03 #; Lymphocytes # 1.4 10*3/uL (1.4-4.0); Lymphocytes % 19.8 % (21.3-54.2); Mean Corpuscular HGB Conc 31.1 GM/DL (32-36); Mean Corpuscular Volume 93.3 FL (87-102); Mean Platelet Volume 10.5 FL (9.6-12.0); Monocytes % 8.9 % (1.7-12.7); Neutrophils % 66.3 % (38.7-73.9); Platelet Count 180 T/CUMM (130-400); Red Blood Count 3.45 MC/CUMM (3.8-5.5); Red Cell Distribution Width 12.3 % (9.3-17.3); White Blood Count 6.9 T/CUMM (4-12)
[2020-08-17 05:32] LABS: Calcium 8.1 MG/DL (8.5-10.1); Osmolality,Calculated 277.3 MOS/KG (273-304)
[2020-08-17] MEDS: SODIUM CHLORIDE 0.9% 1,000 ML IV SCH (07:47)
[2020-08-17] MEDS: SIMETHICONE CHEW 125 MG TABLET PO SCH ×4 (09:00→22:29)
[2020-08-17] MEDS: PANTOPRAZOLE 40 MG VIAL IV SCH (10:53)
[2020-08-17] MEDS ORDERED: diphenhydrAMINE CAP 25 MG CAPSULE PO ONE (10:56)
[2020-08-17] MEDS ORDERED: DIAZEPAM 5 MG TABLET PO ONE (10:56)
[2020-08-17] MEDS ORDERED: LIDOCAINE 1% 20 ML VIAL ONE (12:32)
[2020-08-17] MEDS ORDERED: fentaNYL 100 MCG/2 ML VIAL ONE (12:42)
[2020-08-17] MEDS ORDERED: MIDAZOLAM 2 MG/2 ML VIAL ONE (12:42)
[2020-08-17] MEDS ORDERED: HEPARIN 5,000 UNIT/1 ML VIAL ONE (12:53)
[2020-08-17] MEDS: DOCUSATE SODIUM 100 MG CAPSULE PO SCH ×2 (14:44→22:22)
[2020-08-17] MEDS: ACETAMINOPHEN 325 MG TABLET PO SCH ×2 (14:44→22:25)
[2020-08-17] MEDS: ASPIRIN EC 81 MG TABLET PO SCH (14:44)
[2020-08-17] MEDS: FAMOTIDINE 20 MG TABLET PO SCH (14:44)
[2020-08-17] MEDS: COLESTIPOL 1 GM TABLET PO SCH (14:44)
[2020-08-17] MEDS: GABAPENTIN 50 MG/ML 30 ML/BOTTLE PO SCH ×3 (14:45→22:24)
[2020-08-17] MEDS: DILTIAZEM 60 MG TABLET PO SCH (22:22)
[2020-08-17] MEDS: FLUoxetine 20 MG CAPSULE PO SCH (22:22)
[2020-08-18 05:13] LABS: Basophils # 0.1 10*3/uL (0.0-0.2); Basophils % 0.9 % (0.0-0.8); Eosinophils # 0.3 10*3/uL (0.0-0.87); Eosinophils % 5.1 % (0.00-10.9); Hematocrit 29.6 VOL% (35.7-47.0); Hemoglobin 9.9 GM/DL (12.0-16.0); Immature Granulocytes % 0.3 %; Immature Granulocytes Absolute 0.02 #; Lymphocytes # 1.1 10*3/uL (1.4-4.0); Lymphocytes % 17.6 % (21.3-54.2); Mean Corpuscular HGB Conc 33.4 GM/DL (32-36); Mean Corpuscular Volume 87.1 FL (87-102); Mean Platelet Volume 10.9 FL (9.6-12.0); Monocytes % 8.8 % (1.7-12.7); Neutrophils % 67.3 % (38.7-73.9); Platelet Count 195 T/CUMM (130-400); Red Cell Distribution Width 12.2 % (9.3-17.3); White Blood Count 6.5 T/CUMM (4-12)
[2020-08-18 05:27] LABS: Albumin 2.5 G/DL (3.4-5.0); Bilirubin,Total 0.6 MG/DL (0.2-1.0); Calcium 7.8 MG/DL (8.5-10.1); Osmolality,Calculated 269.7 MOS/KG (273-304); Potassium 3.4 MMOL/L (3.5-5.1); Total Protein 5.6 G/DL (6.4-8.2)
[2020-08-18] MEDS: PANTOPRAZOLE 40 MG VIAL IV SCH (08:38)
[2020-08-18] MEDS: FAMOTIDINE 20 MG TABLET PO SCH (08:38)
[2020-08-18] MEDS: DILTIAZEM 60 MG TABLET PO SCH ×4 (08:38→21:48)
[2020-08-18] MEDS: ASPIRIN EC 81 MG TABLET PO SCH (08:38)
[2020-08-18] MEDS: COLESTIPOL 1 GM TABLET PO SCH (08:38)
[2020-08-18] MEDS: SIMETHICONE CHEW 125 MG TABLET PO SCH ×4 (08:39→21:49)
[2020-08-18] MEDS: DOCUSATE SODIUM 100 MG CAPSULE PO SCH ×2 (08:39→21:48)
[2020-08-18] MEDS: ACETAMINOPHEN 325 MG TABLET PO SCH ×2 (08:39→21:49)
[2020-08-18] MEDS: GABAPENTIN 50 MG/ML 30 ML/BOTTLE PO SCH ×3 (08:42→21:50)
[2020-08-18] MEDS: ALUM/MAG/SIMETH/LIDO VISC 1:1 30 ML BOTTLE PO PRN (10:07)
[2020-08-18 11:50] LABS: Risk Ratio 2.49; VLDL CHOLESTEROL 17.6 MG/DL
[2020-08-18] MEDS ORDERED: traMADol 50 MG TABLET PO PRN (16:54)
[2020-08-18] MEDS ORDERED: ROSUVASTATIN 10 MG TABLET PO ONE (21:02)
[2020-08-18] MEDS: FLUoxetine 20 MG CAPSULE PO SCH (21:51)
[2020-08-19] MEDS: ASPIRIN EC 81 MG TABLET PO SCH (08:47)
[2020-08-19] MEDS: PANTOPRAZOLE 40 MG VIAL IV SCH (08:47)
[2020-08-19] MEDS: GABAPENTIN 50 MG/ML 30 ML/BOTTLE PO SCH ×2 (08:47→16:02)
[2020-08-19] MEDS: DILTIAZEM 60 MG TABLET PO SCH ×3 (08:48→16:02)
[2020-08-19] MEDS: COLESTIPOL 1 GM TABLET PO SCH (08:48)
[2020-08-19] MEDS: SIMETHICONE CHEW 125 MG TABLET PO SCH ×2 (08:48→12:49)
[2020-08-19] MEDS: ACETAMINOPHEN 325 MG TABLET PO SCH (08:48)
[2020-08-19] MEDS: FAMOTIDINE 20 MG TABLET PO SCH (08:48)
[2020-08-19] MEDS: DOCUSATE SODIUM 100 MG CAPSULE PO SCH (08:48)
[2020-08-19] MEDS ORDERED: POTASSIUM CHLORIDE 20 MEQ/15 ML UDCUP PO ONE (12:25)
[2020-08-19 15:53] VITALS: BP 119/56
[2020-08-19] MEDS ORDERED: ROSUVASTATIN 10 MG TABLET PO SCH (21:00)
== END 2020-08-19 17:55 | disposition home or self-care (01) | DRG 356 ==
LOC: N.TELEN
PROVIDERS: ADMIT Family Medicine; ATTEND Family Medicine
PROC: CLCCHCL (ICD-10-PCS; 2020-08-17 13:45)